=== PATIENT | female | born 1990 | race Caucasian/White ===

== ENCOUNTER 2022-12-28 11:44 | Outpatient (CLI) | payer MEDICAID, SELFPAY | END 2022-12-28 11:45 | disposition home or self-care (01) | PROVIDERS: PCP Physician Assistant Medical; Visit Provider Physician Assistant Medical | DX: Z01.419 Encounter for gynecological examination (general) (routine) without abnormal findings (principal); R00.2 Palpitations; I10 Essential (primary) hypertension; R79.89 Other specified abnormal findings of blood chemistry; R63.1 Polydipsia | CPT/HCPCS: 80053; 80061; 82088; 83690; 83835; 84244; 84443; 86701; 86702; 86803; 87536 ==

== ENCOUNTER 2023-01-01 13:20 | Outpatient (CLI) | payer MEDICAID, SELFPAY | END 2023-01-01 13:21 | disposition home or self-care (01) | LOC: NFLDREF 01-07 02:55 | PROVIDERS: PCP Physician Assistant Medical; Referring Provider Physician Assistant Medical; Visit Provider Physician Assistant Medical | DX: R00.2 Palpitations (principal) | CPT/HCPCS: 83835 ==

== ENCOUNTER 2023-01-14 14:31 | Outpatient (CLI) | payer BC, SELFPAY ==
--- NOTE | 2023-01-14 15:00 | CRLHL7_ITS ---
For Patients: As a result of the Century Cures Act, medical imaging exams and procedure reports are released immediately into your electronic medical record. You may view this report before your referring provider. If you have questions, please contact your health care provider. Indication: Right upper quadrant pain Technique: Postcontrast CT abdomen and pelvis. 100 cc Isovue 370 intravenous contrast. Please note that all CT scans at this facility use dose modulation, iterative reconstruction, and/or weight-based dosing when appropriate to reduce radiation dose to as low as reasonably achievable. Comparison: None Findings: Curvilinear subsegmental scarring in the anterior right middle lobe. No pleural effusion. Mild hepatic steatosis. No intrahepatic mass. No stigmata of cirrhosis. Gallbladder normal. No calcified stones or biliary obstruction. The pancreas is unremarkable. Normal spleen. No hiatal hernia. Adrenal glands are normal. Normal kidneys and ureters. Incidental splenule is present. Scattered subcentimeter retroperitoneal lymph nodes are present. No abdominal wall hernia. The stomach and small bowel appear unremarkable. Normal bladder. Small ovarian cysts. Normal uterus. No enlarged pelvic or inguinal lymph nodes. Sigmoid diverticulosis is present. Mild diverticulosis also present involving the proximal left colon. No evidence of diverticulitis. No inflammatory bowel disease. No fracture. Impression: Diverticulosis. No diverticulitis. Numerous subcentimeter retroperitoneal lymph nodes are likely reactive. Mild hepatic steatosis. Gallbladder appears normal. No biliary obstruction. Please note that all CT scans at this facility use dose modulation, iterative reconstruction, and/or weight-based dosing when appropriate to reduce radiation dose to as low as reasonably achievable. Dictated by Simba Mcdonough MD @ 01/18/2023 9:03:01 AM (Electronically Signed)
== END 2023-01-14 14:32 | disposition home or self-care (01) ==
PROVIDERS: PCP Physician Assistant Medical; Visit Provider Physician Assistant Medical
DX: R10.11 Right upper quadrant pain (principal); K57.30 Diverticulosis of large intestine without perforation or abscess without bleeding; K76.0 Fatty (change of) liver, not elsewhere classified
CPT/HCPCS: 74177; Q9967

== ENCOUNTER 2023-01-29 15:14 | Outpatient (CLI) | payer BC, SELFPAY ==
--- NOTE | 2023-01-29 15:30 | CRLHL7_ITS ---
For Patients: As a result of the Century Cures Act, medical imaging exams and procedure reports are released immediately into your electronic medical record. You may view this report before your referring provider. If you have questions, please contact your health care provider. INDICATION: Headaches. TECHNIQUE: Brain MRI without contrast. The following sequences were obtained: Sagittal T1 weighted sequence. DWI and ADC mapping sequences. Axial FLAIR and GLORIA T2 weighted sequences. Susceptibility or GRE sequence. COMPARISON: None. FINDINGS: No evidence of acute ischemia. No evidence of acute or chronic intracranial blood products. No pathologic intracranial signal abnormality. No mass effect or herniation. No hydrocephalus or extra-axial collections. The pituitary gland, parasellar structures and optic chiasm are normal. Tiny chronic infarct left cerebellum, series 3, image 8. all the major intracranial vascular structures demonstrate normal flow-related signal. The orbital contents are normal. No calvarial or skull base marrow replacing process. Bilateral polypoid maxillary sinus mucosal thickening no extracranial soft tissue findings. IMPRESSION: 1. No acute ischemia or other acute intracranial pathology. 2. Tiny chronic infarct left cerebellar hemisphere. 3. No other significant intracranial abnormalities. Dictated by Edin De Santiago MD @ 01/29/2023 4:23:19 PM (Electronically Signed)
== END 2023-01-29 15:15 | disposition home or self-care (01) ==
LOC: MRI 15:16
PROVIDERS: PCP Physician Assistant Medical; Visit Provider Physician Assistant Medical
DX: R51.9 Headache, unspecified (principal); I63.9 Cerebral infarction, unspecified
CPT/HCPCS: 70551

== ENCOUNTER 2023-07-16 17:46 | Emergency (ER) | payer BC, SELFPAY ==
[2023-07-16 18:31] VITALS: BP 125/88; PULSE 113; RESP 16; TEMP 36.3; O2SAT 93; BMI 28.9
--- NOTE | 2023-07-16 19:38 | ED.ABDPAIN ---
HPI - Abdominal Pain General Chief Complaint: Abdominal Pain Stated Complaint: Dizzy, nauseous, elevated heartrate Time Seen by Provider: 07/16/23 19:05 History of Present Illness HPI narrative: This 33-year-old female comes in with upper epigastric pain that she has had for the past urine half. She has had CT imaging an ultrasound test done along with labs over the course of this time. She was seen in [facility] 2 months ago at which time she had labs in CT imaging done. At that time her liver enzymes were elevated at around 200. Her bilirubin was also slightly elevated. CT imaging then showed no acute findings. She states that she had a virtual visit with a processing manager earlier this week and comes in here for further evaluation. She states that she has 3 drinks of alcohol every day. She does not report any fevers. She has had some nausea and vomiting. Related Data Home Medications Medication Instructions Recorded Confirmed promethazine 25 mg tablet 25 mg PO Q6H PRN nausea 07/16/23 07/16/23 Previous Rx's Medication Instructions Recorded omeprazole 20 mg capsule,delayed 20 mg PO .prn PRN GERD #90 caps 02/15/23 release ondansetron 4 mg disintegrating 4 mg PO Q8H PRN nausea and 02/15/23 tablet vomiting #14 tabs pantoprazole 40 mg tablet,delayed 40 mg PO DAILY #30 tabs 07/16/23 release (Protonix) Allergies Allergy/AdvReac Type Severity Reaction Status Date / Time No Known Drug Allergies Allergy Verified 01/14/23 15:13 Review of Systems Status of ROS Reports: 10 or more systems reviewed and unremarkable except as noted in History and below Narrative Constitutional: No fevers, no weight gain or loss. Eyes: No discharge. No vision changes. HENT: No congestion, no sore throat, no ear pain. Cardiovascular: No chest pain, no palpitations. Respiratory: No shortness of breath, no wheezes, no cough. Gastrointestinal: Upper epigastric abdominal pain with some nausea and vomiting. Genitourinary: No dysuria, no hematuria. Musculoskeletal: Normal range of motion. Skin: No rashes, no pruritis. Neurological: No dizziness, weakness, sensory change, speech change. Endo/Heme/Allergies: No bruising or bleeding. No polydipsia. Pysch: no suicidality, no anxiety, no insomnia. All other systems reviewed and are negative. [facility] Medical History (Updated 07/16/23 @ 20:27 by Florentino Grady MD) History of ectopic ?Z87.59 - Personal history of other complications of , childbirth and the puerperium (ICD-10) Social History Smoking Status: Current every day smoker How often do you have a drink containing alcohol: never AUDIT-C Alcohol total score: 0 Exam Narrative: Exam Narrative: Constitutional: Well-developed, well-nourished, no acute distress. HEENT: Normocephalic, atraumatic. Neck: Normal range of motion. Nontender. Supple. Heart: Regular. No murmurs. Normal rate. Intact distal pulses. Lungs: Clear to auscultation. No chest discomfort. No wheezes, rhonchi, or rales. Abdomen: Normal bowel sounds. Diffuse tenderness in the upper abdomen. No rebound tenderness. Genitalia: Deferred. Back: No midline tenderness. Normal range of motion. Extremities: Normal range of motion. No injury. Skin: Intact. No rash. Warm. No erythema or pallor. Neurologic: No altered sensation. No weakness. Alert and oriented. Psychiatric: No suicidality. No anxiety or depression. No insomnia. Nursing notes and vitals signs are reviewed. Const: Vital Signs, click to edit/add: Vital Signs - 24 hr 07/16/23 18:31 Temperature 97.4 F L Pulse Rate [Pulse Oximeter] 113 H Respiratory Rate 16 Blood Pressure [Ri ght Upper Arm] 125/88 Pulse Oximetry 93 Oxygen Delivery Me thod Room Air Course Vital Signs Vital signs: Initial Vital Signs Temperature 97.4 F L 07/16/23 18:31 Temperature Source Temporal Artery Scan 07/16/23 18:31 Pulse Rate 113 H 07/16/23 18:31 Respiratory Rate 16 07/16/23 18:31 Blood Pressure 125/88 07/16/23 18:31 Blood Pressure Mean 100 07/16/23 18:31 Blood Pressure Position Sitting 07/16/23 18:31 Pulse Oximetry 93 07/16/23 18:31 Oxygen Delivery Method Room Air 07/16/23 18:31 Vital Signs Temperature 97.4 F L 07/16/23 18:31 Pulse Rate 113 H 07/16/23 18:31 Respiratory Rate 16 07/16/23 18:31 Blood Pressure 125/88 07/16/23 18:31 Pulse Oximetry 93 07/16/23 18:31 Oxygen Delivery Method Room Air 07/16/23 18:31 Temperature 97.4 F L 07/16/23 18:31 Pulse Rate 113 H 07/16/23 18:31 Respiratory Rate 16 07/16/23 18:31 Blood Pressure 125/88 07/16/23 18:31 Pulse Oximetry 93 07/16/23 18:31 Oxygen Delivery Method Room Air 07/16/23 18:31 MDM - Abdominal Pain MDM Narrative Medical decision making narrative: This patient comes in with upper epigastric pain that has been persistent over the past year and a half and worse recently. She had a rather thorough workup a couple months ago down in [place]. I did review those results which included some elevation of her liver enzymes. Today her liver enzymes are similarly elevated with AST greater than ALT. Additionally her lipase is returns at 575 today. Her symptoms are most likely related to chronic pancreatitis due to alcohol. She is taking 3 drinks a day. I did use bedside ultrasound and saw a normal appearing gallbladder. I explained to the patient that her symptoms are most likely related to the toxin of alcohol. She states that it would be no problem for to discontinue using alcohol altogether. The patient did receive an intramuscular injection of Toradol and an oral dose of Zofran. I did prescribe Protonix along with some tablets of Rogers and dissolvable Zofran to treat her symptoms. I explained that her body will need some time to heal when she stops taking alcohol. I advised her to follow-up with her primary physician and indicated that an endoscopy study would be a reasonable follow-up procedure if not improving. Lab Data Labs: Lab Results 07/16/23 Range/Units 19:42 WBC 5.14 (4.50-11.00) K/uL RBC 4.52 (4.00-5.20) m/uL Hgb 16.6 H (12.0-16.0) gm/dL Hct 48.1 (33.0-51.0) % MCV 106 H (80-100) fL MCH 37 H (26-34) pg MCHC 35 (32-36) gm/dL RDW Coeff of Ronald 15.0 (11.5-15.5) % Plt Count 157 (140-440) K/uL Neut % (Auto) 65.6 (42.0-72.0) % Lymph % (Auto) 24.5 (20-44) % [place] % (Auto) 5.8 (0.0-11.0) % Eos % (Auto) 3.7 (0.0-7.0) % Baso % (Auto) 0.2 (0.0-3.0) % Neut # (Auto) 3.37 (1.7-7.0) K/uL Lymph # (Auto) 1.26 (0.90-2.90) K/uL [place] # (Auto) 0.30 (0.00-0.90) K/UL Eos # (Auto) 0.19 (0.00-0.50) K/uL Baso # (Auto) 0.01 (0.00-0.30) K/uL Abs Immat Gran (auto) 0.01 (0.00-0.30) K/uL Imm/Tot Granulo (auto) 0.2 % Sodium 142 (135-149) mmol/L Potassium 4.0 (3.6-5.1) mmol/L Chloride 103 (96-114) mmol/L Carbon Dioxide 25 (20-32) mmol/L Anion Gap 14 (7-15) mEq/L BUN 4 L (5-24) mg/dL Creatinine 0.4 L (0.5-1.5) mg/dL Estimated Creat Clear 203.68 Estimated GFR 135 ml/min Glucose 106 (60-115) mg/dL Calcium 8.7 (8.4-10.6) mg/dL Total Bilirubin 1.4 (0.1-1.5) mg/dL Direct Bilirubin 0.5 (0.0-0.5) mg/dL AST 228 H (12-35) U/L ALT 194 H (4-35) U/L Alkaline Phosphatase 113 (40-150) U/L Total Protein 8.1 (6.0-8.3) g/dL Albumin 4.4 (3.3-5.0) g/dL Lipase 575 H (23-300) U/L Discharge Plan Discharge Clinical Impression: Chronic pancreatitis Patient Disposition: Home, Self-Care Condition: Stable Additional Instructions: Discontinue alcohol intake. Take medication as needed and directed. Follow up with primary physician or return if symptoms are persistent or worsening. Prescriptions: New pantoprazole [Protonix] 40 mg tablet,delayed release (DR/EC) 40 mg PO DAILY Qty: 30 2RF No Action promethazine 25 mg tablet 25 mg PO Q6H PRN (Reason: nausea) omeprazole 20 mg capsule,delayed release(DR/EC) 20 mg PO .prn PRN (Reason: GERD) Qty: 90 0RF Rx Instructions: once daily ondansetron 4 mg tablet,disintegrating 4 mg PO Q8H PRN (Reason: nausea and vomiting) Qty: 14 0RF Rx Instructions: once every 8 hours as needed for nausea Follow Up/Referrals: Liz Ortez PA-C [Physician Lending Manager] - Stand Alone Forms: [facility] Info Instructions Procedures Ultrasound Biliary exam #1: Anatomical areas examined: gallbladder, long and short axis Indications: RUQ/epigastric pain Exam type: limited abdominal ultrasound; RUQ Description/Findings: Normal appearing gallbladder without any wall thickening or sign of obstruction.
[2023-07-16 19:48] LABS: Basophils Absolute Auto 0.01 K/uL (0.00-0.30); Basophils Percent Auto 0.2 % (0.0-3.0); Eosinophils Absolute Auto 0.19 K/uL (0.00-0.50); Eosinophils Percent Auto 3.7 % (0.0-7.0); Hematocrit 48.1 % (33.0-51.0); Hemoglobin* 16.6 gm/dL (12.0-16.0); Immature Granulocytes Abs Auto 0.01 K/uL (0.00-0.30); Immature Granulocytes Pct Auto 0.2 %; Lymphocytes Absolute Auto 1.26 K/uL (0.90-2.90); Lymphocytes Percent Auto 24.5 % (20-44); Mean Corpuscular HGB Conc 35 gm/dL (32-36); Mean Corpuscular Hemoglobin 37 pg (26-34); Mean Corpuscular Volume 106 fL (80-100); Monocytes Percent Auto 5.8 % (0.0-11.0); Neutrophils Absolute Auto 3.37 K/uL (1.7-7.0); Neutrophils Percent Auto 65.6 % (42.0-72.0); Platelet Count* 157 K/uL (140-440); Red Blood Count 4.52 m/uL (4.00-5.20); White Blood Count* 5.14 K/uL (4.50-11.00)
[2023-07-16] MEDS: ONDANSETRON ODT 4 MG TAB PO (19:57)
[2023-07-16] MEDS: KETOROLAC 30 MG/ML inj IM (19:57)
[2023-07-16 19:59] LABS: Slide Review Reflex No
[2023-07-16 20:01] LABS: Albumin* 4.4 g/dL (3.3-5.0); Chloride* 103 mmol/L (96-114)
[2023-07-16 20:02] LABS: Sodium* 142 mmol/L (135-149)
[2023-07-16 20:04] LABS: Anion Gap 14 mEq/L (7-15); Aspartate Amino Transferase* 228 U/L (12-35); Bilirubin Direct* 0.5 mg/dL (0.0-0.5); Bilirubin Total* 1.4 mg/dL (0.1-1.5); Carbon Dioxide* 25 mmol/L (20-32); Creatinine* 0.4 mg/dL (0.5-1.5); Est. Creatinine Clearance* 203.68; Estimated Glomerular Filt Rate 135 ml/min; Total Protein* 8.1 g/dL (6.0-8.3)
[2023-07-16 20:05] LABS: Alanine Aminotransferase* 194 U/L (4-35); Alkaline Phosphatase* 113 U/L (40-150); Blood Urea Nitrogen* 4 mg/dL (5-24); Calcium* 8.7 mg/dL (8.4-10.6); Glucose* 106 mg/dL (60-115); Lipase* 575 U/L (23-300)
[2023-07-16 20:37] VITALS: BP 128/97; PULSE 100; RESP 16; TEMP 36.4; O2SAT 97
== END 2023-07-16 20:38 | disposition home or self-care (01) ==
PROVIDERS: Emergency Provider Emergency Medicine Emergency Medical Services
DX: K86.1 Other chronic pancreatitis (principal)
CPT/HCPCS: 36415; 76705; 80048; 80076; 83690; 85025; 96372; 99284; 99285; A9270; J1885

== ENCOUNTER 2023-08-09 15:21 | Outpatient (CLI) | payer BC, SELFPAY | END 2023-08-09 15:22 | disposition home or self-care (01) | PROVIDERS: PCP Physician Assistant Medical; Visit Provider Physician Assistant Medical | DX: R79.89 Other specified abnormal findings of blood chemistry (principal); N92.6 Irregular menstruation, unspecified; I10 Essential (primary) hypertension; L90.6 Striae atrophicae; R00.2 Palpitations | CPT/HCPCS: 80053; 82627; 82670; 82728; 83498; 83690; 84146; 84270; 84403; 84443 ==

== ENCOUNTER 2023-10-06 21:44 | Inpatient (IN) | payer BC, SELFPAY ==
[2023-10-06 22:16] VITALS: BP 136/87; PULSE 109; RESP 18; TEMP 36.3; O2SAT 98; BMI 26.6
--- NOTE | 2023-10-06 22:29 | ED.NAVMDI ---
HPI - Nausea/Vomiting/Diarrhea General Time Seen by Provider: 22:29 Date Seen: 10/06/23 Chief complaint: Nausea/Vomiting Stated complaint: vomiting Time Seen by Provider: 10/06/23 22:28 Source: patient, RN notes reviewed and old records reviewed Mode of arrival: ambulatory Limitations: no limitations History of Present Illness HPI Narrative: Patient is a 33-year-old female coming in with abdominal pain for 4 days now. She states she has not been able to eat or drink anything since the . This is worse than when she had pancreatitis in July. 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 She has had no fevers. She has had recurrent nausea vomiting. It was more upper abdominal pain but now it is generalized thing out. Denies any urinary symptoms. Has not had a menstrual cycle for months, has irregular menses, did have a negative test in July here. She understands this will be repeated tonight. She is asking for something for nausea and something for pain. Related Data Home Medications Medication Instructions Recorded Confirmed pantoprazole 40 mg tablet,delayed 40 mg PO Q48H 10/07/23 10/14/23 release (Protonix) Previous Rx's Medication Instructions Recorded hydroxyzine pamoate 25 mg capsule 25 - 50 mg (1 - 2 x 25 mg) PO QHS 08/09/23 #60 caps ondansetron 4 mg disintegrating 4 mg PO Q8H PRN nausea and 10/09/23 tablet vomiting #14 tabs oxycodone 5 mg tablet 5 mg PO Q6H PRN #10 tabs 10/09/23 ciprofloxacin HCl 250 mg tablet 250 mg PO BID 5 days #10 tabs 10/18/23 potassium chloride 20 mEq 20 meq PO BID 5 days #10 tabs 10/18/23 tablet,extended release(part/cryst) Allergies Allergy/AdvReac Type Severity Reaction Status Date / Time honey Allergy Severe Hives Unverified 10/14/23 11:05 bees Allergy Intermediate Anaphylaxis Uncoded 10/14/23 11:05 Review of Systems Status of ROS: Reports: 6 or more systems reviewed and unremarkable except as noted in History and below [facility] Medical History (Updated 10/18/23 @ 08:04 by Liz Ortez PA-C) GERD (gastroesophageal reflux disease) ?K21.9 - Gastro-esophageal reflux disease without esophagitis (ICD-10) Amenorrhea ?N91.2 - Amenorrhea, unspecified (ICD-10) Hepatic steatosis ?K76.0 - Fatty (change of) liver, not elsewhere classified (ICD-10) Alcohol use disorder ?F10.90 - Alcohol use, unspecified, uncomplicated (ICD-10) History of ectopic ?Z87.59 - Personal history of other complications of , childbirth and the puerperium (ICD-10) Social History What is your current living situation?: I presently have a place to live Problems where you live: no known problems Problems where you live details: n/a In the past 12 months, utilities in danger of being shut off: no In past 12 months, lack of transportation kept you from medical appts, meetings, work, or getting things needed for daily living: no In the past 12 mos, have been you worried that your food would run out before you had money to buy more?: never true In the past 12 mos, the food you bought just didn't last and you didn't have money to buy more?: never true Highest level of school completed/degree received: GED or equivalent Smoking Status: Current every day smoker What tobacco products do you use: cigarettes Smoking packs per day: 1 Smoking cigarettes per day: 20.0 How often do you have a drink containing alcohol: never AUDIT-C Alcohol total score: 0 Non-prescribed substance use: denies use How often does anyone, including family, friends and others, physically hurt you: never How often does anyone, including family, friends and others, insult or talk down to you: never How often does anyone, including family, friends and others, threaten you with harm: never How often does anyone, including family, friends and others, scream or curse at you: never service: No Exam Const: Vital Signs, click to edit/add: Vital Signs - 24 hr 10/06/23 22:16 10/06/23 23:00 10/06/23 23:01 Temperature 97.4 F L Pulse Rate 104 H 101 H Pulse Rate [Pulse Oximeter] 109 H Respiratory Rate 18 Blood Pressure 135/96 H Blood Pressure [Ri ght Upper Arm] 136/87 Pulse Oximetry 98 93 94 Oxygen Delivery Me thod Room Air Patient is a 33-year-old female seen ambulating back from the bathroom, looks like she does not feel well. Pupils equal round and reactive, sclera slightly injected but no periorbital erythema swelling, no drainage. Cheeks are flushed but no rash. Neck is supple, no masses. Lungs are clear, good air entry, no wheezing or crackles. CV fast but regular, no murmur, normal S1-S2, no S3 or S4. Abdomen is not distended, has mild diffuse tenderness throughout, no true rebound or guarding. Do not feel any masses. Bowel sounds are faint but present. No lower extremity edema. Documenting provider has reviewed patient's vital signs: yes Course Course ED Course: Patient will be monitored on pulse oximetry, IV placed, L of IV fluids started an initial attempt at pain management with 15 mg IV Toradol and management of nausea with 4 mg IV Zofran. We will get appropriate labs, confirm negative test. She will have a CT of abdomen pelvis. She obviously has intra-abdominal pathology, pancreatitis certainly is at high a level on the differential. Will await labs, CT imaging and guide therapy accordingly. This could be gastroenteritis, bowel obstruction, other surgical and nonsurgical abdominal etiologies. Reevaluation(s) Time of Reevaluation #1: 00:07 Reevaluation #1: Patient requesting further pain medicine, will order 4 mg IV [address]. Her CT has not been read. Amylase is elevated, lipase was not back last time it looked. This is very likely pancreatitis. Time of Reevaluation #2: 00:43 Reevaluation #2: Reviewed with patient that her pancreatic enzymes are elevated, CT still pending. She is feeling better with morphine. Discussed admission, she agrees. Have paged e-hospitalist. Will likely need ultrasound Consultations Consultation #1: Dr. Lopez was contacted, report given for patient. He accepts patient but would like her to stay here and page him back once CT is read, I have informed nursing staff of this. US RUQ to be ordered in am, is not going to change any plans tonight. There is no bed availability elsewhere at this time. Time: 00:53 Vital Signs Vital signs: Initial Vital Signs Temperature 97.4 F L 10/06/23 22:16 Temperature Source Temporal Artery Scan 10/06/23 22:16 Pulse Rate 109 H 10/06/23 22:16 Respiratory Rate 18 10/06/23 22:16 Blood Pressure 136/87 10/06/23 22:16 Blood Pressure Mean 103 10/06/23 22:16 Blood Pressure Position Sitting 10/06/23 22:16 Pulse Oximetry 98 10/06/23 22:16 Oxygen Delivery Method Room Air 10/06/23 22:16 Vital Signs Temperature 97.4 F L 10/06/23 22:16 Pulse Rate 109 H 10/06/23 22:16 Respiratory Rate 18 10/06/23 22:16 Blood Pressure 136/87 10/06/23 22:16 Pulse Oximetry 98 10/06/23 22:16 Oxygen Delivery Method Room Air 10/06/23 22:16 Temperature 97.3 F L 10/09/23 11:00 Pulse Rate 80 10/09/23 11:00 Respiratory Rate 16 10/09/23 11:00 Blood Pressure 145/105 H 10/09/23 11:00 Pulse Oximetry 98 10/09/23 11:00 Oxygen Delivery Method Room Air 10/09/23 11:00 Medications Administered Medications: Discontinued Medications Generic Name Dose Route Start Last Admin Trade Name Freq PRN Reason Stop Dose Admin Acetaminophen 650 mg 10/07/23 03:36 10/09/23 02:36 Acetaminophen 325 Mg Tablet PO 650 mg Q6H PRN Administration pain Folic Acid 1 mg 10/07/23 09:00 10/09/23 09:12 Folic Acid 1 Mg Tablet PO 1 mg DAILY ROSALIE Administration Sodium Chloride 1,000 mls @ 1,000 mls/hr 10/06/23 22:41 10/06/23 23:51 0.9 % Sodium Chloride 1000 Ml IV 10/06/23 23:40 Infused .Q1H ROSALIE Infusion Lactated Ringer's 1,000 mls @ 500 mls/hr 10/06/23 23:27 10/07/23 01:17 Lactated Ringers 1000 Ml IV 10/07/23 01:26 Infused .Q2H ROSALIE Infusion Sodium Chloride 1,000 mls @ 125 mls/hr 10/07/23 03:42 10/09/23 02:35 0.9 % Sodium Chloride 1000 Ml IV 125 mls/hr .Q8H ROSALIE Administration Ketorolac Tromethamine 15 mg 10/06/23 22:38 10/06/23 22:47 Ketorolac 15 Mg/Ml Inj IVP 10/06/23 22:39 15 mg ONCE ONE Administration Melatonin 3 mg 10/07/23 03:36 10/08/23 21:31 Melatonin 3 Mg Tablet PO 3 mg HS PRN Administration Morphine Sulfate 4 mg 10/07/23 00:08 10/07/23 00:15 Morphine 4 Mg/Ml Inj IVP 10/07/23 00:09 4 mg ONCE ONE Administration Morphine Sulfate 2 mg 10/07/23 01:21 10/07/23 01:29 Morphine 2 Mg/Ml Inj IVP 2 mg Q2H PRN Administration Morphine Sulfate 2 - 4 mg 10/07/23 03:36 10/07/23 11:59 Morphine 4 Mg/Ml Inj IVP 4 mg Q1H PRN Administration Pain Multivitamins/Minerals 1 tab 10/07/23 09:00 10/09/23 09:13 Multivitamin/Minerals 1 Tablet PO 1 tab DAILY ROSALIE Administration Nicotine 1 patch 10/07/23 04:15 10/09/23 06:25 Nicotine 14 Mg Patch TRANSDERMA 1 patch Q24H ROSALIE Administration Ondansetron HCl 4 mg 10/06/23 22:38 10/06/23 22:47 Ondansetron 2 Mg/Ml Inj IVP 10/06/23 22:39 4 mg ONCE ONE Administration Ondansetron HCl 4 mg 10/07/23 01:21 10/07/23 01:29 Ondansetron 2 Mg/Ml Inj IVP 4 mg Q6H PRN Administration Nausea Ondansetron HCl 4 mg 10/07/23 03:36 10/09/23 10:15 Ondansetron 2 Mg/Ml Inj IVP 4 mg Q4H PRN Administration Nausea Oxycodone HCl 5 mg 10/07/23 10:20 10/09/23 11:24 Oxycodone 5 Mg Tablet PO 5 mg Q2H PRN Administration Pantoprazole Sodium 40 mg 10/07/23 04:20 10/09/23 06:25 Pantoprazole Sodium 40 Mg Inj IVP 40 mg Q24H ROSALIE Administration Sodium Chloride 5 ml 10/07/23 03:36 10/09/23 06:28 Sodium Chloride 0.9 % (Flush) 10 Ml Syringe IVF 5 ml .FLUSH PRN Administration Sodium Chloride 5 ml 10/07/23 09:00 10/09/23 09:13 Sodium Chloride 0.9 % (Flush) 10 Ml Syringe IVF Not Given BID ROSALIE Thiamine HCl 100 mg 10/07/23 04:00 10/09/23 09:14 Thiamine 100 Mg Tablet PO 10/09/23 04:01 Not Given Q24H ROSALIE Thiamine HCl 100 mg 10/09/23 09:00 10/09/23 09:12 Thiamine 100 Mg Tablet PO 10/09/23 09:01 100 mg DAILY ROSALIE Administration MDM - Nausea/Vomiting/Diarrhea Lab Data Attestation: I reviewed the patient's lab results. Labs: Lab Results 10/06/23 10/06/23 10/06/23 Range/Units 22:25 22:26 22:26 WBC 6.67 (4.50-11.00) K/uL RBC 4.82 (4.00-5.20) m/uL Hgb 16.7 H (12.0-16.0) gm/dL Hct 48.5 (33.0-51.0) % MCV 101 H (80-100) fL MCH 35 H (26-34) pg MCHC 34 (32-36) gm/dL RDW Coeff of Ronald 14.7 (11.5-15.5) % Plt Count 180 (140-440) K/uL Neut % (Auto) 80.6 H (42.0-72.0) % Lymph % (Auto) 13.0 L (20-44) % Randolph % (Auto) 5.4 (0.0-11.0) % Eos % (Auto) 0.6 (0.0-7.0) % Baso % (Auto) 0.3 (0.0-3.0) % Neut # (Auto) 5.40 (1.7-7.0) K/uL Lymph # (Auto) 0.90 (0.90-2.90) K/uL Randolph # (Auto) 0.40 (0.00-0.90) K/UL Eos # (Auto) 0.04 (0.00-0.50) K/uL Baso # (Auto) 0.02 (0.00-0.30) K/uL Abs Immat Gran (auto) 0.01 (0.00-0.30) K/uL Imm/Tot Granulo (auto) 0.1 % Sodium 139 (135-149) mmol/L Potassium 4.0 (3.6-5.1) mmol/L Chloride 100 (96-114) mmol/L Carbon Dioxide 21 (20-32) mmol/L Anion Gap 18 H (7-15) mEq/L BUN 9 (5-24) mg/dL Creatinine 0.4 L (0.5-1.5) mg/dL Estimated Creat Clear 211.01 Estimated GFR 135 ml/min Glucose 92 (60-115) mg/dL Lactate 3.2 H (0.5-1.9) mmol/L Calcium 9.4 (8.4-10.6) mg/dL Total Bilirubin 2.0 H (0.1-1.5) mg/dL Direct Bilirubin 0.8 H (0.0-0.5) mg/dL AST 82 H (12-35) U/L ALT 111 H (4-35) U/L Alkaline Phosphatase 107 (40-150) U/L Total Protein 9.2 H (6.0-8.3) g/dL Albumin 5.3 H (3.3-5.0) g/dL Amylase 416 H Cancelled (18-89) U/L Lipase 5175 H (23-300) U/L Urine Color (Yellow) Urine Appearance (Clear) Urine pH (5.0-8.5) Ur Specific [place] (1.000-1.030) Urine Protein (Negative) Urine Glucose (UA) (Negative) Urine Ketones (Negative) Urine Blood (Negative) Urine Nitrite (Negative) Urine Bilirubin (Negative) Urine Urobilinogen (0.2-1.0) Ur Leukocyte Esterase (Negative) Urine RBC (0-2) Urine WBC (0-5) Ur Squamous Epith Cells (None-Few) Urine Bacteria (None) Urine Mucus (None) Urine HCG, Qual (Negative) Ethyl Alcohol (0.01-0.03) % Lab Acknowledgement 10/06/23 10/06/23 10/06/23 Range/Units 22:26 22:40 22:42 WBC (4.50-11.00) K/uL RBC (4.00-5.20) m/uL Hgb (12.0-16.0) gm/dL Hct (33.0-51.0) % MCV (80-100) fL MCH (26-34) pg MCHC (32-36) gm/dL RDW Coeff of Ronald (11.5-15.5) % Plt Count (140-440) K/uL Neut % (Auto) (42.0-72.0) % Lymph % (Auto) (20-44) % Randolph % (Auto) (0.0-11.0) % Eos % (Auto) (0.0-7.0) % Baso % (Auto) (0.0-3.0) % Neut # (Auto) (1.7-7.0) K/uL Lymph # (Auto) (0.90-2.90) K/uL Randolph # (Auto) (0.00-0.90) K/UL Eos # (Auto) (0.00-0.50) K/uL Baso # (Auto) (0.00-0.30) K/uL Abs Immat Gran (auto) (0.00-0.30) K/uL Imm/Tot Granulo (auto) % Sodium (135-149) mmol/L Potassium (3.6-5.1) mmol/L Chloride (96-114) mmol/L Carbon Dioxide (20-32) mmol/L Anion Gap (7-15) mEq/L BUN (5-24) mg/dL Creatinine (0.5-1.5) mg/dL Estimated Creat Clear Estimated GFR ml/min Glucose (60-115) mg/dL Lactate (0.5-1.9) mmol/L Calcium (8.4-10.6) mg/dL Total Bilirubin (0.1-1.5) mg/dL Direct Bilirubin (0.0-0.5) mg/dL AST (12-35) U/L ALT (4-35) U/L Alkaline Phosphatase (40-150) U/L Total Protein (6.0-8.3) g/dL Albumin (3.3-5.0) g/dL Amylase (18-89) U/L Lipase Cancelled (23-300) U/L Urine Color Cynthia A (Yellow) Urine Appearance Cloudy A (Clear) Urine pH 6.0 (5.0-8.5) Ur Specific [place] >= 1.030 (1.000-1.030) Urine Protein 2+ A (Negative) Urine Glucose (UA) Negative (Negative) Urine Ketones 3+ A (Negative) Urine Blood Trace-lysed A (Negative) Urine Nitrite Negative (Negative) Urine Bilirubin 1+ A (Negative) Urine Urobilinogen 1.0 (0.2-1.0) Ur Leukocyte Esterase Negative (Negative) Urine RBC 2-5 A (0-2) Urine WBC 2-5 (0-5) Ur Squamous Epith Cells Moderate A (None-Few) Urine Bacteria Few A (None) Urine Mucus Few A (None) Urine HCG, Qual Negative (Negative) Ethyl Alcohol 0.07 H (0.01-0.03) % Lab Acknowledgement Cancelled Discharge Plan Discharge Clinical Impression: Acute pancreatitis Patient Disposition: Admitted As Observation Condition: Improved Activity Level: Activity as Tolerated Discharge Diet: Regular
[2023-10-06 22:42] LABS: Lactate* 3.2 mmol/L (0.5-1.9)
--- NOTE | 2023-10-06 22:42 | CRLHL7_ITS ---
For Patients: As a result of the Century Cures Act, medical imaging exams and procedure reports are released immediately into your electronic medical record. You may view this report before your referring provider. If you have questions, please contact your health care provider. INDICATION: abd pain, n/v, hx pancreatitis. TECHNIQUE: CT abdomen and pelvis acquired with 100 cc Omnipaque 350 IV contrast. COMPARISON: January 14, 2023 FINDINGS: Lower chest: Unremarkable. Liver: Diffuse severe hypodensity of the liver. Normal in size. No suspicious masses. Gallbladder and bile ducts: Unremarkable. No stones or inflammation. No biliary dilatation. Pancreas: Peripancreatic small free fluid and fat stranding, consistent with pancreatitis. Spleen: Unremarkable. Normal in size. No masses. Adrenal glands: Unremarkable. No nodules. Kidneys: Unremarkable. No suspicious masses, stones, or hydronephrosis. GI tract: Scattered colonic diverticuli. Normal in caliber. No sign of mass or inflammation. Normal appendix. Vasculature: Abdominal aorta is normal in caliber. Mesenteric arteries are patent. Lymph nodes: No lymphadenopathy. Peritoneum/Abdominal Wall: Unremarkable. No sign of mass or infiltration. No free air or significant free fluid. Pelvis: Unremarkable. Bones: Unremarkable for age. IMPRESSION: 1. Peripancreatic small free fluid and fat stranding, consistent with provided history of pancreatitis. 2. Severe hypodensity of the liver may be related to hepatic steatosis or rarely seen with edema from hepatitis. Please note that all CT scans at this facility use dose modulation, iterative reconstruction, and/or weight-based dosing when appropriate to reduce radiation dose to as low as reasonably achievable. Dictated by Marisa Cobian MD @ 10/07/2023 1:30:15 AM (Electronically Signed)
[2023-10-06 22:43] LABS: Basophils Absolute Auto 0.02 K/uL (0.00-0.30); Basophils Percent Auto 0.3 % (0.0-3.0); Eosinophils Absolute Auto 0.04 K/uL (0.00-0.50); Eosinophils Percent Auto 0.6 % (0.0-7.0); Hematocrit 48.5 % (33.0-51.0); Hemoglobin* 16.7 gm/dL (12.0-16.0); Immature Granulocytes Abs Auto 0.01 K/uL (0.00-0.30); Immature Granulocytes Pct Auto 0.1 %; Mean Corpuscular HGB Conc 34 gm/dL (32-36); Mean Corpuscular Hemoglobin 35 pg (26-34); Mean Corpuscular Volume 101 fL (80-100); Monocytes Percent Auto 5.4 % (0.0-11.0); Neutrophils Percent Auto 80.6 % (42.0-72.0); Platelet Count* 180 K/uL (140-440); RDW Coefficient of Variation % 14.7 % (11.5-15.5); Red Blood Count 4.82 m/uL (4.00-5.20); White Blood Count* 6.67 K/uL (4.50-11.00)
[2023-10-06 22:44] LABS: Slide Review Reflex No
[2023-10-06] MEDS: ONDANSETRON 2 MG/ML inj 4 MG IVP (22:47)
[2023-10-06] MEDS: 0.9 % SODIUM CHLORIDE 1000 ml 1,000 ML IV (22:47)
[2023-10-06] MEDS: KETOROLAC 15 MG/ML inj IVP (22:47)
[2023-10-06 22:52] LABS: Appearance Urine Cloudy (Clear); Bilirubin Urine 1+ (Negative); Blood Urine Trace-lysed (Negative); Color Urine Amber (Yellow); Glucose Urine Negative (Negative); Ketones Urine 3+ (Negative); Leukocyte Esterase Urine Negative (Negative); Nitrite Urine Negative (Negative); Protein Urine 2+ (Negative); Specific Gravity Urine >= 1.030 (1.000-1.030)
[2023-10-06 22:53] LABS: Ur HCG Qualitative* Negative (Negative)
[2023-10-06 22:57] LABS: Bacteria Urine Few; Mucus Urine Few; Squamous Epithelial Cell Urine Moderate (None-Few)
[2023-10-06 22:57] LABS: Albumin* 5.3 g/dL (3.3-5.0); Chloride* 100 mmol/L (96-114)
[2023-10-06 22:58] LABS: Sodium* 139 mmol/L (135-149)
[2023-10-06 23:00] VITALS: PULSE 104; O2SAT 93
[2023-10-06 23:00] LABS: Amylase* 416 U/L (18-89); Anion Gap 18 mEq/L (7-15); Aspartate Amino Transferase* 82 U/L (12-35); Bilirubin Direct* 0.8 mg/dL (0.0-0.5); Blood Urea Nitrogen* 9 mg/dL (5-24); Carbon Dioxide* 21 mmol/L (20-32); Creatinine* 0.4 mg/dL (0.5-1.5); Est. Creatinine Clearance* 211.01; Estimated Glomerular Filt Rate 135 ml/min; Glucose* 92 mg/dL (60-115); Total Protein* 9.2 g/dL (6.0-8.3)
[2023-10-06 23:01] VITALS: BP 135/96; PULSE 101; O2SAT 94
[2023-10-06 23:01] LABS: Alanine Aminotransferase* 111 U/L (4-35); Alkaline Phosphatase* 107 U/L (40-150); Calcium* 9.4 mg/dL (8.4-10.6)
[2023-10-06 23:02] VITALS: PULSE 100; O2SAT 93
[2023-10-06 23:02] LABS: Ethanol* 0.07 % (0.01-0.03)
[2023-10-06 23:30] VITALS: PULSE 105; O2SAT 95
[2023-10-06 23:32] LABS: Lipase* 5175 U/L (23-300)
[2023-10-06] MEDS: LACTATED RINGERS 1000 ML 1,000 ML 500 ML IV (23:51)
[2023-10-07] VITALS (17 sets, daily range): BP systolic 107–141; BP diastolic 77–104; PULSE 91–115; RESP 16–20; TEMP 36.3–37.3; O2SAT 94–97; BMI 28.5
[2023-10-07] MEDS: MORPHINE 4 MG/ML INJ IVP ×6 (00:15→11:59)
--- NOTE | 2023-10-07 01:06 | CRLHL7_ITS ---
For Patients: As a result of the Century Cures Act, medical imaging exams and procedure reports are released immediately into your electronic medical record. You may view this report before your referring provider. If you have questions, please contact your health care provider. Indication: Pancreatitis Technique: Sonography of the abdomen was performed limited to the structures discussed below Comparison: A CT from 10/06/2023 Findings: Gallbladder appears normal. Wall thickness is normal at 2 millimeters. No pericholecystic fluid collection. No stones. No wall thickening. No sonographic Nj`s sign. The liver is enlarged and heterogeneous with decreased sound through transmission consistent with hepatic steatosis. No visible mass or biliary ductal dilation. The common duct measures 4 millimeters which is normal. The pancreas is not seen due to overlying bowel gas. The aorta and cava as visualized appears normal The right kidney is normal in size and appearance measuring 1.6 x 5.3 x 5.7 centimeters Impression: 1. Normal appearing gallbladder and biliary ductal system. 2. Enlarged fatty infiltrated liver. 3. Nonvisualized pancreas. Dictated by Cong Finnegan MD @ 10/07/2023 7:24:13 AM (Electronically Signed)
[2023-10-07] MEDS: ONDANSETRON 2 MG/ML inj 4 MG IVP ×4 (01:29→16:16)
[2023-10-07] MEDS: MORPHINE 2 MG/ML inj IVP (01:29)
--- NOTE | 2023-10-07 04:08 | W.PM.TELEH&P ---
Telehealth- H&P: HPI History of Present Illness Time Seen by Provider: 03:54 Date Seen: 10/07/23 Chief complaint: vomiting Narrative: Jackie Do is seen as an Interactive Telehealth visit. Jackie Do is a 33 year old male who has a past medical history significant for GERD, HTN, ?alcohol abuse, prior episode of pancreatitis, who presented to the ED [facility] emergency department on 10/06/2023 for evaluation of nausea/vomiting, abdominal pain.? She reported that she had been having worsening abdominal pain for about 4 days (but really for a year).? She stated that she had not been able to keep any liquids or solids down since 10/02/2023.? She initially stated that she had quit using alcohol but later admitted that she had some alcohol on 10/04/2023. She stated that in the past she would have 4-5 drinks a day but this has decreased since her first episode of pancreatitis to about 2 drinks per day. She also smokes 1 pack/day of cigarettes. Review of Systems Const: Reports: chills and fatigue; Denies: fever Cardio: Denies: chest pain, edema, shortness of breath with exertion or shortness of breath when lying down Resp: Denies: shortness of breath GI: Reports: abdominal pain, nausea and vomiting; Denies: coffee grounds in vomit or diarrhea : Denies: blood in urine Neuro: Denies: confusion or seizure-like activity Endo: Reports: fatigue PFSH PFSH Medical History History of ectopic ?Z87.59 - Personal history of other complications of , childbirth and the puerperium (ICD-10) Social History What is your current living situation?: I presently have a place to live Problems where you live: no known problems Problems where you live details: n/a In the past 12 months, utilities in danger of being shut off: no In past 12 months, lack of transportation kept you from medical appts, meetings, work, or getting things needed for daily living: no In the past 12 mos, have been you worried that your food would run out before you had money to buy more?: never true In the past 12 mos, the food you bought just didn't last and you didn't have money to buy more?: never true Highest level of school completed/degree received: GED or equivalent Smoking Status: Current every day smoker What tobacco products do you use: cigarettes Smoking packs per day: 1 Smoking cigarettes per day: 20.0 How often do you have a drink containing alcohol: never AUDIT-C Alcohol total score: 0 Non-prescribed substance use: denies use How often does anyone, including family, friends and others, physically hurt you: never How often does anyone, including family, friends and others, insult or talk down to you: never How often does anyone, including family, friends and others, threaten you with harm: never How often does anyone, including family, friends and others, scream or curse at you: never service: No Meds Home Medications and Allergies Allergies Allergy/AdvReac Type Severity Reaction Status Date / Time honey Allergy Severe Hives Unverified 10/07/23 02:45 bees Allergy Intermediate Anaphylaxis Uncoded 10/07/23 02:45 Exam Narrative Exam Narrative: Physical Exam GENERAL: ?vital signs reviewed, well developed and nourished, in no distress HEENT: pupils are equal round and reactive to light, extraocular movements are grossly within normal limits and oral mucosa is moist. NECK: Supple without lymphadenopathy or thyromegaly according to nursing staff examination observation HEART: Borderline tachycardic Regular rate and rhythm without any rubs, murmurs, or gallops. LUNGS: Clear to auscultation bilaterally with good air movement throughout ABDOMEN: Observation from nurse assisted exam, abdomen appears soft, with mild diffuse tenderness, obese with Positive bowel sounds noted. EXTREMITIES: Strength and sensation is observed to be grossly within normal limits in the upper and lower extremities.? No focal strength deficit is observed. SKIN:? Observed warm and dry with color normal Const Vital Signs, click to edit/add: Vital Signs - 24 hr 10/06/23 22:16 10/06/23 23:00 10/06/23 23:01 Temperature 97.4 F L Pulse Rate 104 H 101 H Pulse Rate [Pulse Oximeter] 109 H Respiratory Rate 18 Blood Pressure 135/96 H Blood Pressure [Right Arm] Blood Pressure [Right Upper Arm] 136/87 Pulse Oximetry 98 93 94 Oxygen Delivery Method Room Air 10/06/23 23:02 10/06/23 23:30 10/07/23 00:00 Temperature Pulse Rate 100 105 H 115 H Pulse Rate [Pulse Oximeter] Respiratory Rate Blood Pressure Blood Pressure [Right Arm] Blood Pressure [Right Upper Arm] Pulse Oximetry 93 95 95 Oxygen Delivery Method Room Air 10/07/23 00:01 10/07/23 00:01 10/07/23 00:01 Temperature Pulse Rate 103 H 103 H 103 H Pulse Rate [Pulse Oximeter] Respiratory Rate Blood Pressure 107/77 107/77 107/77 Blood Pressure [Right Arm] Blood Pressure [Right Upper Arm] Pulse Oximetry 96 96 96 Oxygen Delivery Method 10/07/23 00:01 10/07/23 00:08 10/07/23 00:30 Temperature Pulse Rate 103 H 110 H Pulse Rate [Pulse Oximeter] Respiratory Rate Blood Pressure 107/77 Blood Pressure [Right Arm] Blood Pressure [Right Upper Arm] Pulse Oximetry 96 94 94 Oxygen Delivery Method 10/07/23 01:00 10/07/23 01:01 10/07/23 01:16 Temperature 97.4 F L Pulse Rate 100 103 H Pulse Rate [Pulse Oximeter] Respiratory Rate Blood Pressure 120/88 Blood Pressure [Right Arm] Blood Pressure [Right Upper Arm] Pulse Oximetry 94 94 Oxygen Delivery Method 10/07/23 01:30 10/07/23 02:05 10/07/23 02:06 Temperature 98.0 F 98.0 F 98.0 F Pulse Rate 99 Pulse Rate [Pulse Oximeter] 99 99 Respiratory Rate 20 20 20 Blood Pressure 125/78 Blood Pressure [Right Arm] Blood Pressure [Right Upper Arm] 121/78 121/78 Pulse Oximetry 97 97 Oxygen Delivery Method Room Air 10/07/23 02:20 Temperature 98.6 F Pulse Rate Pulse Rate [Pulse Oximeter] 100 Respiratory Rate 20 Blood Pressure Blood Pressure [Right Arm] 141/97 H Blood Pressure [Right Upper Arm] Pulse Oximetry 97 Oxygen Delivery Method Room Air Documenting provider has reviewed patient's vital signs: yes Hospitalist - H&P: Result Labs Labs: Short CBC 10/06/23 Range/Units 22:25 WBC 6.67 (4.50-11.00) K/uL Hgb 16.7 H (12.0-16.0) gm/dL Hct 48.5 (33.0-51.0) % Plt Count 180 (140-440) K/uL BMP 10/06/23 22:26 Sodium 139 Potassium 4.0 Chloride 100 Carbon Dioxide 21 BUN 9 Creatinine 0.4 L Glucose 92 Calcium 9.4 Liver Function 10/06/23 Range/Units 22:26 Total Bilirubin 2.0 H (0.1-1.5) mg/dL Direct Bilirubin 0.8 H (0.0-0.5) mg/dL AST 82 H (12-35) U/L ALT 111 H (4-35) U/L Alkaline Phosphatase 107 (40-150) U/L Albumin 5.3 H (3.3-5.0) g/dL Urine 10/06/23 Range/Units 22:40 Urine Color Cynthia A (Yellow) Urine Appearance Cloudy A (Clear) Urine pH 6.0 (5.0-8.5) Ur Specific [place] >= 1.030 (1.000-1.030) Urine Protein 2+ A (Negative) Urine Glucose (UA) Negative (Negative) Imaging CT scan - abdomen: Attestation: I have reviewed the pertinent imaging results. Radiologist's impression: COMPARISON: January 14, 2023 FINDINGS: Lower chest: Unremarkable. Liver: Diffuse severe hypodensity of the liver. Normal in size. No suspicious masses. Gallbladder and bile ducts: Unremarkable. No stones or inflammation. No biliary dilatation. Pancreas: Peripancreatic small free fluid and fat stranding, consistent with pancreatitis. Spleen: Unremarkable. Normal in size. No masses. Adrenal glands: Unremarkable. No nodules. Kidneys: Unremarkable. No suspicious masses, stones, or hydronephrosis. GI tract: Scattered colonic diverticuli. Normal in caliber. No sign of mass or inflammation. Normal appendix. Vasculature: Abdominal aorta is normal in caliber. Mesenteric arteries are patent. Lymph nodes: No lymphadenopathy. Peritoneum/Abdominal Wall: Unremarkable. No sign of mass or infiltration. No free air or significant free fluid. Pelvis: Unremarkable. Bones: Unremarkable for age. IMPRESSION: 1. Peripancreatic small free fluid and fat stranding, consistent with provided history of pancreatitis. 2. Severe hypodensity of the liver may be related to hepatic steatosis or rarely seen with edema from hepatitis. Assessment and Plan Assessment and plan (1) Acute pancreatitis: Status: Acute (2) GERD (gastroesophageal reflux disease): Status: Acute Plan Admit Acute pancreatitis -suspect due to alcohol abuse -N.p.o. -IV fluids -As needed antiemetics and narcotics -Right upper quadrant ultrasound in a.m. - check repeat LFT's in AM Possible alcoholic ketoacidosis -IV fluids -Initial lactate was elevated -Doubt current infection -will check repeat Gastroesophageal reflux disease -IV Protonix for now Hypertension -Not currently on medications -Monitor Alcohol abuse -Patient initially said that she was not consuming alcohol at all but later admitted to having 2 drinks on Vadim -Will monitor on withdrawal protocol -Check urine tox screen -social services assistant input regarding substance abuse in a.m. Telehealth: Statement Statement Telehealth Visit: Today's History and Physical is provided via interactive telehealth by Chon Lopez MD.? Patient is located at [facility].? Provider is located at [facility].? Nursing staff assisted with the patient's exam. The visit being done today meets criteria for a telehealth visit and the patient or patient?s parent/guardian is aware the visit is a telehealth visit. Camera Start Time: 03:54 Camera End Time: 04:06
[2023-10-07] MEDS: 0.9 % SODIUM CHLORIDE 1000 ml 1,000 ML 125 ML IV ×3 (04:33→21:05)
[2023-10-07] MEDS: PANTOPRAZOLE SODIUM 40 MG INJ IVP (04:49)
[2023-10-07] MEDS: NICOTINE 14 mg PATCH 1 PATCH TRANSDERMA (04:49)
[2023-10-07] MEDS: THIAMINE 100 MG TABLET PO (04:50)
[2023-10-07 06:39] LABS: Lactate* 0.6 mmol/L (0.5-1.9)
[2023-10-07 06:41] LABS: Basophils Absolute Auto 0.02 K/uL (0.00-0.30); Basophils Percent Auto 0.3 % (0.0-3.0); Eosinophils Absolute Auto 0.12 K/uL (0.00-0.50); Hematocrit 40.9 % (33.0-51.0); Immature Granulocytes Abs Auto 0.01 K/uL (0.00-0.30); Immature Granulocytes Pct Auto 0.2 %; Lymphocytes Percent Auto 15.3 % (20-44); Mean Corpuscular HGB Conc 34 gm/dL (32-36); Mean Corpuscular Hemoglobin 35 pg (26-34); Mean Corpuscular Volume 102 fL (80-100); Monocytes Percent Auto 6.9 % (0.0-11.0); Neutrophils Percent Auto 75.3 % (42.0-72.0); Platelet Count* 136 K/uL (140-440); White Blood Count* 5.94 K/uL (4.50-11.00)
[2023-10-07 06:50] LABS: Amphetamine Screen Urine Negative (Negative); Barbiturate Screen Urine Negative (Negative); Benzodiazepines Screen Urine Negative (Negative); Cannabinoid Screen Urine Negative (Negative); Cocaine Screen Urine Negative (Negative); Methadone Screen Urine Negative (Negative); Methamphetamines Screen Urine Negative (Negative); Opiate Screen Urine POSITIVE (Negative); Oxycodone Screen Urine Negative (Negative); Phencyclidine Screen Urine Negative (Negative); Tricyclic Antidepressant Urine Negative (Negative)
[2023-10-07 06:58] LABS: Slide Review Reflex No
--- NOTE | 2023-10-07 07:03 | PC.NURSE ---
Arrived to floor?at 0205. A&O, pleasant and cooperative. Pt shaky and teary at admission. Pt is guarding abdomen and rating pain 9/10. See eMAR for interventions. Pt hypertensive VS otherwise stable. Nicotine patch placed on left shoulder. Pt does report that she has cigarettes in personal belonging bag. Healthcare Consultant offered to lock up purse, including cigarettes, pt declined. Healthcare Consultant informed pt on hospital smoking policy and pt agreeable to policy. CWAS unremarkable. SBA to bathroom.
[2023-10-07 07:15] LABS: Chloride* 103 mmol/L (96-114); Potassium* 4.2 mmol/L (3.6-5.1); Sodium* 136 mmol/L (135-149)
[2023-10-07 07:18] LABS: Anion Gap 9 mEq/L (7-15); Blood Urea Nitrogen* 8 mg/dL (5-24); Carbon Dioxide* 24 mmol/L (20-32); Creatinine* 0.4 mg/dL (0.5-1.5); Est. Creatinine Clearance* 203.68; Estimated Glomerular Filt Rate 135 ml/min
[2023-10-07 07:19] LABS: Calcium* 8.4 mg/dL (8.4-10.6); Glucose* 74 mg/dL (60-115)
[2023-10-07] MEDS: SODIUM CHLORIDE 0.9 % (FLUSH) 10 ML SYRINGE 5 ML IVF ×2 (08:24→12:00)
[2023-10-07] MEDS: MULTIVITAMIN/MINERALS 1 TABLET 1 TAB PO (10:10)
[2023-10-07] MEDS: FOLIC ACID 1 MG TABLET PO (10:11)
[2023-10-07 11:44] LABS: Albumin* 4.2 g/dL (3.3-5.0)
[2023-10-07 11:46] LABS: Aspartate Amino Transferase* 66 U/L (12-35); Bilirubin Direct* 0.7 mg/dL (0.0-0.5); Total Protein* 7.2 g/dL (6.0-8.3)
[2023-10-07 11:47] LABS: Alanine Aminotransferase* 87 U/L (4-35); Alkaline Phosphatase* 77 U/L (40-150)
--- NOTE | 2023-10-07 12:34 | P.IMPN_ITS ---
Progress Note: A&P Assessment and plan (1) Acute pancreatitis: Problem details: Due to alcohol abuse. IV fluids, IV pain medications, IV antiemetics. Advance diet as tolerated. Discharge to home when tolerating p.o. intake. Monitor for complications. Status: Acute (2) Hepatic steatosis: Problem details: Likely due to alcohol abuse. Status: Acute (3) Alcohol use disorder: Problem details: With complications of alcohol use patient is at high risk for recurrent and chronic pancreatitis and complications of fatty liver with ongoing use. Recommend abstinence. Off her options for support in maintaining abstinence Status: Acute Plan Continue in hospital for management of acute pancreatitis. Monitor and manage alcohol withdrawal. Time Spent With Patient Total time spent: Total time spent today is 55 minutes, 35 minutes in coordination care discussing with patient, her aunt and other providers management of pancreatitis related to alcohol abuse Subjective Date Seen: 10/07/23 Interval history: 33-year-old female admitted to the hospital with acute on chronic abdominal pain. Patient reports that she has had abdominal pain for a year. It tends to come and go. In the last 4 days has gotten severe. She has been into the emergency room here and at other hospitals in the past where she is diagnosed with pancreatitis due to alcohol abuse. She has been advised to stop drinking. She reports that she stopped drinking up until when she had some alcohol. She reports nothing to drink before that or since then. Her alcohol level in the emergency department last night was 0.07. This past summer as well as today she had right upper quadrant ultrasound showing normal gallbladder. She is found to have fatty liver on ultrasound and on CT scan has had pancreatitis. She has had an elevated lipase when she has been diagnosed with pancreatitis in the past. Overnight she feels a little bit better but still having quite a bit of abdominal pain. She still has some nausea as well. She has tried a little bit of clear liquids but this she does not tolerate well yet. She is on IV fluids, IV pain medicines and IV antiemetics Other than her abdominal pain she reports that she has had any amenorrhea for the last 8 months. She was referred to endocrinology but her insurance declined this. August 09 she had blood tests obtained to evaluate her amenorrhea with findings including normal levels of the following: TSH, estradiol, prolactin, testosterone, sex hormone binding globulin, DHEA sulfate, 17 hydroxyprogesterone. Exam Narrative: Exam Narrative: She is alert and appears in no distress. Eyes normal. Sclerae nonicteric. Oropharynx normal. Neck is supple without mass or adenopathy. Respirations are clear to auscultation. Cardiovascular: S1, S2, regular rate and rhythm. Abdomen: Bowel sounds are diminished. Abdomen is soft with diffuse tenderness moderate in the epigastrium and mild in the lower abdomen. No mass. No peritonitis. Extremities without edema. Good peripheral perfusion. Const: Vital Signs, click to edit/add: Vital Signs - 24 hr 10/06/23 22:16 10/06/23 23:00 10/06/23 23:01 Temperature 97.4 F L Pulse Rate 104 H 101 H Pulse Rate [Pulse Oximeter] 109 H Respiratory Rate 18 Blood Pressure 135/96 H Blood Pressure [Ri ght Arm] Blood Pressure [Ri ght Upper Arm] 136/87 Pulse Oximetry 98 93 94 Oxygen Delivery Me thod Room Air 10/06/23 23:02 10/06/23 23:30 10/07/23 00:00 Temperature Pulse Rate 100 105 H 115 H Pulse Rate [Pulse Oximeter] Respiratory Rate Blood Pressure Blood Pressure [Ri ght Arm] Blood Pressure [Ri ght Upper Arm] Pulse Oximetry 93 95 95 Oxygen Delivery Me thod Room Air 10/07/23 00:01 10/07/23 00:01 10/07/23 00:01 Temperature Pulse Rate 103 H 103 H 103 H Pulse Rate [Pulse Oximeter] Respiratory Rate Blood Pressure 107/77 107/77 107/77 Blood Pressure [Ri ght Arm] Blood Pressure [Ri ght Upper Arm] Pulse Oximetry 96 96 96 Oxygen Delivery Me thod 10/07/23 00:01 10/07/23 00:08 10/07/23 00:30 Temperature Pulse Rate 103 H 110 H Pulse Rate [Pulse Oximeter] Respiratory Rate Blood Pressure 107/77 Blood Pressure [Ri ght Arm] Blood Pressure [Ri ght Upper Arm] Pulse Oximetry 96 94 94 Oxygen Delivery Me thod 10/07/23 01:00 10/07/23 01:01 10/07/23 01:16 Temperature 97.4 F L Pulse Rate 100 103 H Pulse Rate [Pulse Oximeter] Respiratory Rate Blood Pressure 120/88 Blood Pressure [Ri ght Arm] Blood Pressure [Ri ght Upper Arm] Pulse Oximetry 94 94 Oxygen Delivery Me thod 10/07/23 01:30 10/07/23 02:05 10/07/23 02:06 Temperature 98.0 F 98.0 F 98.0 F Pulse Rate 99 Pulse Rate [Pulse Oximeter] 99 99 Respiratory Rate 20 20 20 Blood Pressure 125/78 Blood Pressure [Ri ght Arm] Blood Pressure [Ri ght Upper Arm] 121/78 121/78 Pulse Oximetry 97 97 Oxygen Delivery Me thod Room Air 10/07/23 02:20 10/07/23 03:49 Temperature 98.6 F 98.6 F Pulse Rate Pulse Rate [Pulse Oximeter] 100 100 Respiratory Rate 20 20 Blood Pressure Blood Pressure [Ri ght Arm] 141/97 H 141/97 H Blood Pressure [Ri ght Upper Arm] Pulse Oximetry 97 97 Oxygen Delivery Me thod Room Air Room Air Documenting provider has reviewed patient's vital signs: yes Labs Labs: Laboratory Results - last 24 hr 10/06/23 10/06/23 10/06/23 22:25 22:26 22:26 WBC 6.67 RBC 4.82 Hgb 16.7 H Hct 48.5 MCV 101 H MCH 35 H MCHC 34 RDW Coeff of Ronald 14.7 Plt Count 180 Neut % (Auto) 80.6 H Lymph % (Auto) 13.0 L [place]elope % (Auto) 5.4 Eos % (Auto) 0.6 Baso % (Auto) 0.3 Neut # (Auto) 5.40 Lymph # (Auto) 0.90 Antelope # (Auto) 0.40 Eos # (Auto) 0.04 Baso # (Auto) 0.02 Abs Immat Gran (auto) 0.01 Imm/Tot Granulo (auto) 0.1 Sodium 139 Potassium 4.0 Chloride 100 Carbon Dioxide 21 Anion Gap 18 H BUN 9 Creatinine 0.4 L Estimated Creat Clear 211.01 Estimated GFR 135 Glucose 92 Lactate 3.2 H Calcium 9.4 Total Bilirubin 2.0 H Direct Bilirubin 0.8 H AST 82 H ALT 111 H Alkaline Phosphatase 107 Total Protein 9.2 H Albumin 5.3 H Amylase 416 H Cancelled Lipase 5175 H Urine Color Urine Appearance Urine pH Ur Specific [place] Urine Protein Urine Glucose (UA) Urine Ketones Urine Blood Urine Nitrite Urine Bilirubin Urine Urobilinogen Ur Leukocyte Esterase Urine RBC Urine WBC Ur Squamous Epith Cells Urine Bacteria Urine Mucus Urine HCG, Qual Urine Opiates Screen Ur Oxycodone Screen Urine Methadone Screen Ur Propoxyphene Screen Ur Barbiturates Screen U Tricyclic Antidepress Ur Phencyclidine Scrn Ur Amphetamines Screen U Methamphetamines Scrn U Benzodiazepines Scrn Urine Cocaine Screen U Marijuana (THC) Screen Ur Drug Screen Comment Ethyl Alcohol Lab Acknowledgement 10/06/23 10/06/23 10/06/23 22:26 22:40 22:42 WBC RBC Hgb Hct MCV MCH MCHC RDW Coeff of Ronald Plt Count Neut % (Auto) Lymph % (Auto) Antelope % (Auto) Eos % (Auto) Baso % (Auto) Neut # (Auto) Lymph # (Auto) Antelope # (Auto) Eos # (Auto) Baso # (Auto) Abs Immat Gran (auto) Imm/Tot Granulo (auto) Sodium Potassium Chloride Carbon Dioxide Anion Gap BUN Creatinine Estimated Creat Clear Estimated GFR Glucose Lactate Calcium Total Bilirubin Direct Bilirubin AST ALT Alkaline Phosphatase Total Protein Albumin Amylase Lipase Cancelled Urine Color Cynthia A Urine Appearance Cloudy A Urine pH 6.0 Ur Specific [place] >= 1.030 Urine Protein 2+ A Urine Glucose (UA) Negative Urine Ketones 3+ A Urine Blood Trace-lysed A Urine Nitrite Negative Urine Bilirubin 1+ A Urine Urobilinogen 1.0 Ur Leukocyte Esterase Negative Urine RBC 2-5 A Urine WBC 2-5 Ur Squamous Epith Cells Moderate A Urine Bacteria Few A Urine Mucus Few A Urine HCG, Qual Negative Urine Opiates Screen Ur Oxycodone Screen Urine Methadone Screen Ur Propoxyphene Screen Ur Barbiturates Screen U Tricyclic Antidepress Ur Phencyclidine Scrn Ur Amphetamines Screen U Methamphetamines Scrn U Benzodiazepines Scrn Urine Cocaine Screen U Marijuana (THC) Screen Ur Drug Screen Comment Ethyl Alcohol 0.07 H Lab Acknowledgement Cancelled 10/07/23 10/07/23 10/07/23 06:10 07:00 Unknown WBC 5.94 RBC 4.00 Hgb 14.0 Hct 40.9 MCV 102 H MCH 35 H MCHC 34 RDW Coeff of Ronald 15.0 Plt Count 136 L Neut % (Auto) 75.3 H Lymph % (Auto) 15.3 L [place] % (Auto) 6.9 Eos % (Auto) 2.0 Baso % (Auto) 0.3 Neut # (Auto) 4.50 Lymph # (Auto) 0.90 Antelope # (Auto) 0.40 Eos # (Auto) 0.12 Baso # (Auto) 0.02 Abs Immat Gran (auto) 0.01 Imm/Tot Granulo (auto) 0.2 Sodium 136 Potassium 4.2 Chloride 103 Carbon Dioxide 24 Anion Gap 9 BUN 8 Creatinine 0.4 L Estimated Creat Clear 203.68 Estimated GFR 135 Glucose 74 Lactate 0.6 Calcium 8.4 Total Bilirubin 2.0 H Direct Bilirubin 0.7 H AST 66 H ALT 87 H Alkaline Phosphatase 77 Total Protein 7.2 Albumin 4.2 Amylase Lipase Urine Color Urine Appearance Urine pH Ur Specific [place] Urine Protein Urine Glucose (UA) Urine Ketones Urine Blood Urine Nitrite Urine Bilirubin Urine Urobilinogen Ur Leukocyte Esterase Urine RBC Urine WBC Ur Squamous Epith Cells Urine Bacteria Urine Mucus Urine HCG, Qual Urine Opiates Screen POSITIVE A Ur Oxycodone Screen Negative Urine Methadone Screen Negative Ur Propoxyphene Screen Negative Ur Barbiturates Screen Negative U Tricyclic Antidepress Negative Ur Phencyclidine Scrn Negative Ur Amphetamines Screen Negative U Methamphetamines Scrn Negative U Benzodiazepines Scrn Negative Urine Cocaine Screen Negative U Marijuana (THC) Screen Negative Ur Drug Screen Comment See Note Ethyl Alcohol Lab Acknowledgement
--- NOTE | 2023-10-07 14:05 | NUTR.NU ---
RDN with nutrition screen for pancreatitis. Patient agreed to receive diet education related to pancreatitis. Patient was provided diet education on a low fat diet. Discussed foods to include and foods to avoid. Education also provided following a low fat diet (about 60 grams/day) long-term. Verbal and written information as well as a sample menu provided from [facility]. Patient verbalized understanding. RDN's contact information was provided and patient was encouraged to contact RDN with questions. RDN to follow-up PRN.
--- NOTE | 2023-10-07 14:13 | PC.SOCIAL ---
French Binding Folder Consult: Met with pt today to offer resources if needed. Pt stated that she does not feel she needs to go to Substance Abuse Treatment for alcohol and that she can stop drinking on her own. Pt said she drank a lot of alcohol due to the holiday and family gatherings, but had stopped drinking for 60 days prior to that after her last flare up from pancreatitis. Pt stated that she has come to the conclusion that she cannot drink alcohol at all, even on a holiday. Social work to follow-up as needed.
[2023-10-07] MEDS: OXYCODONE 5 MG TABLET PO ×2 (14:58→19:08)
[2023-10-07] MEDS: ACETAMINOPHEN 325 MG TABLET 650 MG PO (14:58)
--- NOTE | 2023-10-07 16:03 | PC.NURSE ---
Pt slept at onset of day shift. At initial assessment she stated her abdominal pain was 10 out of 10. 4 mg of IV morphine provided and pt stated her pain was 6-7. Pt received IV morphine 4mg approximately 2 horus later and rated her pain 6 out of 10 which was treated with 4 mg IV Morphine. IV Zosyn provided for nausea during Dr. Fletcher's rounding evaluation this am, pt's aunt listening and participating at bedside during hospitalist visit. Monika Bennett RN provided another dose of IV morphine 4mg for pain 10 out of 10 after she had tried a CL bkfst tray. Pt did not appear to be in acute distress during these pain evaluations. RN allowed pt to rest intermittently in dark room. Oxycodone 5mg with 650 mg of tylenol provided at shift change for pain 8 out of 10. Report to Jennifer Zamorano RN for evening shift. Pt independent in room and UAL. Continue plan of care.
[2023-10-07] MEDS: MELATONIN 3 MG TABLET PO (21:09)
--- NOTE | 2023-10-07 22:38 | PC.NURSE ---
Shift [id number]- Patient rates pain 4/10 this afternoon after pain scale explained. She has some nausea this afternoon, resolved with zofran- see eMAR. She states increased pain after attempting intake of clears from meal tray. Therefore, she is encouraged to minimize intake. Appears satisfied with pain control from oxycodone this shift. Up independently.
[2023-10-08] VITALS (9 sets, daily range): BP systolic 126–140; BP diastolic 82–108; PULSE 79–95; RESP 16; TEMP 36.4–37.3; O2SAT 95–98
[2023-10-08] MEDS: OXYCODONE 5 MG TABLET PO ×6 (00:39→21:30)
[2023-10-08] MEDS: ACETAMINOPHEN 325 MG TABLET 650 MG PO ×3 (00:39→21:30)
[2023-10-08] MEDS: ONDANSETRON 2 MG/ML inj 4 MG IVP ×3 (04:00→17:26)
[2023-10-08] MEDS: PANTOPRAZOLE SODIUM 40 MG INJ IVP (04:02)
[2023-10-08] MEDS: 0.9 % SODIUM CHLORIDE 1000 ml 1,000 ML 125 ML IV ×3 (04:04→19:05)
[2023-10-08] MEDS: THIAMINE 100 MG TABLET PO (04:05)
[2023-10-08] MEDS: NICOTINE 14 mg PATCH 1 PATCH TRANSDERMA (04:05)
--- NOTE | 2023-10-08 06:01 | PC.NURSE ---
End of shift [id number]: Pt A&O and VSS overnight with exception to low-grade fever T-max 99.1 in which PRN Tylenol provided relief. Pt c/o LUQ to mid abdominal pain rating it 7/10; PRN oxycodone given x1 dose @ 0040. Had c/o nausea in early AM so PRN zofran given x1 dose @ 0400. NS infusing @ 125 mL/hr. CIWA scores: 1 > 2, scoring positive on mild nausea & mild headache.?Nicotine patch placed on patient?s right posterior shoulder. Pt was independent in her room with no c/o dizziness. Total output: 900 mL mayur colored urine. Tolerated water intake but no other clears.
[2023-10-08] MEDS: FOLIC ACID 1 MG TABLET PO (09:11)
[2023-10-08] MEDS: MULTIVITAMIN/MINERALS 1 TABLET 1 TAB PO (09:12)
[2023-10-08 11:21] LABS: Lipase* 3490 U/L (23-300)
--- NOTE | 2023-10-08 16:11 | PM.IMPN1 ---
Progress Note: A&P Assessment and plan (1) Acute pancreatitis: Problem details: Due to alcohol abuse. IV fluids, IV pain medications, IV antiemetics. Advance diet as tolerated. Discharge to home when tolerating p.o. intake. Monitor for complications. Gradually improving Status: Acute (2) Hepatic steatosis: Problem details: Likely due to alcohol abuse. Status: Acute (3) Alcohol use disorder: Problem details: With complications of alcohol use patient is at high risk for recurrent and chronic pancreatitis and complications of fatty liver with ongoing use. Recommend abstinence. Off her options for support in maintaining abstinence Status: Acute Plan continue in hospital for management of pain, IV fluids, monitoring for complications. Total time spent today is 25 minutes, 15 minutes in coordination of care and discussing with patient and other providers management of alcohol use disorder and pancreatitis Subjective Date Seen: 10/08/23 Interval history: 33-year-old female admitted to the hospital with acute on chronic abdominal pain. Patient reports that she has had abdominal pain for a year. It tends to come and go. In the last 4 days has gotten severe. She has been into the emergency room here and at other hospitals in the past where she is diagnosed with pancreatitis due to alcohol abuse. She has been advised to stop drinking. She reports that she stopped drinking up until when she had some alcohol. She reports nothing to drink before that or since then. Her alcohol level in the emergency department last night was 0.07. This past summer as well as today she had right upper quadrant ultrasound showing normal gallbladder. She is found to have fatty liver on ultrasound and on CT scan has had pancreatitis. She has had an elevated lipase when she has been diagnosed with pancreatitis in the past. Overnight she feels a little bit better but still having quite a bit of abdominal pain. She still has some nausea as well. She has tried a little bit of clear liquids but this she does not tolerate well yet. She is on IV fluids, IV pain medicines and IV antiemetics Other than her abdominal pain she reports that she has had any amenorrhea for the last 8 months. She was referred to endocrinology but her insurance declined this. August 09 she had blood tests obtained to evaluate her amenorrhea with findings including normal levels of the following: TSH, estradiol, prolactin, testosterone, sex hormone binding globulin, DHEA sulfate, 17 hydroxyprogesterone. she continues have problems with pain and nausea. She has only had a little bit of a clear liquid diet. She tried to eat a sandwich today and then had an emesis afterwards. Still needing opioids for pain control. Exam Narrative: Exam Narrative: She is alert and appears in no distress. Respirations are clear to auscultation. Cardiovascular: S1, S2, regular rate and rhythm. Abdomen: Bowel sounds are very active. Abdomen is soft with much improved tenderness compared to yesterday, primarily in the epigastrium and left upper quadrant. No significant edema. Const: Vital Signs, click to edit/add: Vital Signs - 24 hr 10/07/23 19:16 10/07/23 23:00 10/07/23 23:00 Temperature 98.5 F 99.1 F Pulse Rate [Pulse Oximeter] 91 93 93 Respiratory Rate 18 16 16 Blood Pressure [Le ft Arm] 122/92 H Blood Pressure [Ri ght Arm] 139/104 H Pulse Oximetry 97 94 Oxygen Delivery Me thod Room Air Room Air 10/08/23 00:39 10/08/23 03:00 10/08/23 07:38 Temperature 99.1 F 98.3 F 97.6 F Pulse Rate [Pulse Oximeter] 84 80 Respiratory Rate 16 16 Blood Pressure [Le ft Arm] 134/103 H 126/82 Blood Pressure [Ri ght Arm] Pulse Oximetry 97 95 Oxygen Delivery Me thod Room Air Room Air 10/08/23 07:40 10/08/23 11:33 10/08/23 14:57 Temperature 97.5 F L 98.1 F 97.5 F L Pulse Rate [Pulse Oximeter] 80 95 82 Respiratory Rate 16 16 16 Blood Pressure [Le ft Arm] 126/82 138/98 H 131/99 H Blood Pressure [Ri ght Arm] Pulse Oximetry 95 96 98 Oxygen Delivery Me thod Room Air Room Air Room Air 10/08/23 14:58 Temperature 97.5 F L Pulse Rate [Pulse Oximeter] 82 Respiratory Rate 16 Blood Pressure [Le ft Arm] 131/99 H Blood Pressure [Ri ght Arm] Pulse Oximetry 98 Oxygen Delivery Me thod Room Air Documenting provider has reviewed patient's vital signs: yes Labs Labs: Laboratory Results - last 24 hr 10/07/23 10/08/23 06:10 10:41 Total Bilirubin 2.0 H Direct Bilirubin 0.7 H AST 66 H ALT 87 H Alkaline Phosphatase 77 Total Protein 7.2 Albumin 4.2 Lipase 3490 H Lab Acknowledgement Test Added
--- NOTE | 2023-10-08 19:10 | PC.NURSE ---
Pt alert and oriented. Pt had complaints of pain ranging from- ; see EMAR for intervention. Pt up walking in hallways. Pt had nausea early afternoon after eating; see EMAR for intervention. Pt advanced to regular diet in evening and tolerated well; pre medicated before supper. Pt had abdominal pain and tenderness.
[2023-10-08] MEDS: SODIUM CHLORIDE 0.9 % (FLUSH) 10 ML SYRINGE 5 ML IVF (21:31)
[2023-10-08] MEDS: MELATONIN 3 MG TABLET PO (21:31)
[2023-10-09] MEDS: 0.9 % SODIUM CHLORIDE 1000 ml 1,000 ML 125 ML IV (02:35)
[2023-10-09] MEDS: ACETAMINOPHEN 325 MG TABLET 650 MG PO (02:36)
[2023-10-09] MEDS: PANTOPRAZOLE SODIUM 40 MG INJ IVP (06:25)
[2023-10-09] MEDS: NICOTINE 14 mg PATCH 1 PATCH TRANSDERMA (06:25)
[2023-10-09] MEDS: ONDANSETRON 2 MG/ML inj 4 MG IVP ×2 (06:26→10:15)
[2023-10-09] MEDS: OXYCODONE 5 MG TABLET PO ×2 (06:26→11:24)
[2023-10-09] MEDS: SODIUM CHLORIDE 0.9 % (FLUSH) 10 ML SYRINGE 5 ML IVF (06:28)
[2023-10-09 06:54] LABS: Basophils Percent Auto 0.6 % (0.0-3.0); Eosinophils Percent Auto 6.6 % (0.0-7.0); Hematocrit 41.2 % (33.0-51.0); Hemoglobin* 14.2 gm/dL (12.0-16.0); Immature Granulocytes Pct Auto 0.3 %; Lymphocytes Percent Auto 23.2 % (20-44); Mean Corpuscular HGB Conc 35 gm/dL (32-36); Mean Corpuscular Hemoglobin 35 pg (26-34); Mean Corpuscular Volume 101 fL (80-100); Monocytes Percent Auto 7.5 % (0.0-11.0); Neutrophils Percent Auto 61.8 % (42.0-72.0); Platelet Count* 118 K/uL (140-440); RDW Coefficient of Variation % 14.1 % (11.5-15.5); Red Blood Count 4.07 m/uL (4.00-5.20); White Blood Count* 3.62 K/uL (4.50-11.00)
[2023-10-09 07:04] LABS: Slide Review Reflex No
[2023-10-09 07:11] LABS: Albumin* 4.1 g/dL (3.3-5.0)
[2023-10-09 07:12] LABS: Chloride* 103 mmol/L (96-114); Potassium* 3.6 mmol/L (3.6-5.1); Sodium* 137 mmol/L (135-149)
[2023-10-09 07:14] LABS: Alkaline Phosphatase* 72 U/L (40-150); Anion Gap 12 mEq/L (7-15); Aspartate Amino Transferase* 63 U/L (12-35); Bilirubin Direct* 0.8 mg/dL (0.0-0.5); Bilirubin Total* 1.7 mg/dL (0.1-1.5); Blood Urea Nitrogen* 3 mg/dL (5-24); Carbon Dioxide* 22 mmol/L (20-32); Creatinine* 0.4 mg/dL (0.5-1.5); Est. Creatinine Clearance* 203.68; Estimated Glomerular Filt Rate 135 ml/min; Total Protein* 7.3 g/dL (6.0-8.3)
[2023-10-09 07:15] LABS: Alanine Aminotransferase* 69 U/L (4-35); Calcium* 8.7 mg/dL (8.4-10.6); Glucose* 76 mg/dL (60-115)
[2023-10-09 07:27] LABS: Lipase* 2100 U/L (23-300)
--- NOTE | 2023-10-09 07:57 | PC.NURSE ---
Pt allowed to sleep til she woke up. No nausea til 600 this am . Zofran given. Pt back to sleep. VSS Has been tolerating clears well. Up ambulated 1 during night.
[2023-10-09 09:00] VITALS: BP 128/101; PULSE 80; RESP 16; TEMP 36.2; O2SAT 99
[2023-10-09 09:05] VITALS: BP 128/101; PULSE 80; RESP 16; TEMP 36.2; O2SAT 99
[2023-10-09] MEDS: FOLIC ACID 1 MG TABLET PO (09:12)
[2023-10-09] MEDS: THIAMINE 100 MG TABLET PO (09:12)
[2023-10-09] MEDS: MULTIVITAMIN/MINERALS 1 TABLET 1 TAB PO (09:13)
--- NOTE | 2023-10-09 09:29 | PM.DS1 ---
DS: Providers Provider Date Seen: 10/09/23 Date of admission: 10/07/23 03:36 Primary care physician: Liz Ortez PA-C Admitting Clinician: Danisha Joe MD Attending Physician on discharge: Maryuri Garcia MD Date of Discharge: 10/09/23 DS: Diagnosis Discharge Diagnosis (1) Acute pancreatitis: Status: Acute Problem details: - 2/2 ETOH use - improved during stay; lipase trended downward and patient able to tolerate po intake (2) Hepatic steatosis: Status: Acute Problem details: - likely 2/2 ETOH use (3) Alcohol use disorder: Status: Acute Problem details: - recommend abstinence, patient aware DS: Summary Hospital Course Hospital Course: Patient is a 33-year-old female with a history of pancreatitis and alcohol abuse who presented to the hospital on 10/07 with abdominal pain. Imaging and labs c/w recurrent pancreatitis. She was kept NPO for 1 day, then slowly advanced diet. She is able to tolerate oral pain medications and antiemetics on hospital day 2, and felt comfortable discharging home. She was also found to have fatty liver disease and elevated LFTs, also likely related to alcohol overuse. She was encouraged to abstain totally upon discharge. Status at Discharge Functional status at discharge: independent ambulation Overall status at discharge: patient is progressing back to baseline Time Spent with Patient Time attestation: Total time spent providing and/or coordinating discharge services: Time spent: Less than 30 minutes Exam Narrative: Exam Narrative: GEN: Alert and oriented, sitting comfortably in bed HEENT: no scleral icterus CV: RRR, No concerning murmurs R: LCTA bilaterally without concerning wheezing Ab: Soft and tolerates palpation Ext: wwp, no concerning edema Skin: No concerning skin lesions or rashes on exposed skin Neuro: Nonfocal Psych: Appropriate Const: Vital Signs, click to edit/add: Vital Signs - 24 hr 10/08/23 11:33 10/08/23 14:57 10/08/23 14:58 Temperature 98.1 F 97.5 F L 97.5 F L Pulse Rate [Pulse Oximeter] 95 82 82 Respiratory Rate 16 16 16 Blood Pressure [Le ft Arm] 138/98 H 131/99 H 131/99 H Pulse Oximetry 96 98 98 Oxygen Delivery Me thod Room Air Room Air Room Air 10/08/23 20:31 10/08/23 23:00 Temperature 97.7 F 97.8 F Pulse Rate [Pulse Oximeter] 82 79 Respiratory Rate 16 16 Blood Pressure [Le ft Arm] 134/108 H 140/106 H Pulse Oximetry 97 95 Oxygen Delivery Me thod Room Air Room Air DS: Data Data Completed and Pending Labs on day of discharge: Labs from last 24 hours 10/09/23 10/08/23 10/07/23 06:21 10:41 06:10 WBC 3.62 L RBC 4.07 Hgb 14.2 Hct 41.2 MCV 101 H MCH 35 H MCHC 35 RDW Coeff of Ronald 14.1 Plt Count 118 L Neut % (Auto) 61.8 Lymph % (Auto) 23.2 Oliver % (Auto) 7.5 Eos % (Auto) 6.6 Baso % (Auto) 0.6 Neut # (Auto) 2.20 Lymph # (Auto) 0.80 L Oliver # (Auto) 0.30 Eos # (Auto) 0.20 Baso # (Auto) 0.00 Abs Immat Gran (auto) 0.00 Imm/Tot Granulo (auto) 0.3 Sodium 137 Potassium 3.6 Chloride 103 Carbon Dioxide 22 Anion Gap 12 BUN 3 L Creatinine 0.4 L Estimated Creat Clear 203.68 Estimated GFR 135 Glucose 76 Calcium 8.7 Total Bilirubin 1.7 H 2.0 H Direct Bilirubin 0.8 H 0.7 H AST 63 H 66 H ALT 69 H 87 H Alkaline Phosphatase 72 77 Total Protein 7.3 7.2 Albumin 4.1 4.2 Lipase 2100 H 3490 H Lab Acknowledgement Test Added Discharge Plan Discharge Disposition: Home, Self-Care Date of Admission: 10/07/23 03:36 Attending Provider on Discharge: Maryuri Garcia Primary Care Provider: Liz Ortez Condition: Improved Anticipated Discharge Date/Time: 10/09/23 13:00 Discharge Medications: New oxycodone 5 mg Tablet 5 mg PO Q6H PRNQty: 10 0RF ondansetron 4 mg tablet,disintegrating 4 mg PO Q8H PRN (Reason: nausea and vomiting) Qty: 14 0RF Continued hydroxyzine pamoate 25 mg capsule 25 - 50 mg PO QHS Qty: 60 0RF Rx Instructions: 1-2 capsules per night for sleep aide pantoprazole [Protonix] 40 mg tablet,delayed release (DR/EC) 40 mg PO Q48H Discontinued ondansetron 4 mg tablet,disintegrating 4 mg PO Q8H PRN (Reason: nausea and vomiting) Qty: 20 0RF Rx Instructions: once every 8 hours as needed for nausea Discharge Orders: Discharge Order (Routine); Ordered 10/09/23 Ordered By: Maryuri Garcia Patient Education: Oxycodone, Rapid Release (By mouth), Ondansetron (By mouth), Pancreatitis (DC), Alcohol Use Disorder (DC) Additional Instructions: Pain medication and Zofran at [facility]. NO MORE ETOH USE - at all; you have evidence of liver damage and recurrent pancreatitis. [place] diet, advance as tolerated. Activity Level: Activity as Tolerated Discharge Diet: Regular Follow Up Appointments: Liz Ortez PA-C [Primary Care Provider] - 10/14/23 11:00 am ([facility] for follow-up.) Forms: [employer] Info Instructions
[2023-10-09 11:00] VITALS: BP 145/105; PULSE 80; RESP 16; TEMP 36.3; O2SAT 98
--- NOTE | 2023-10-09 11:55 | PC.NURSE ---
Pt alert and oriented. Pt had complaints of pain ranging from 4-6; see EMAR for intervention. Pt had complaint of nausea mid morning; see EMAR for intervention. Pt independent in room. Pt's IV removed catheter intact. Pt's nicotine patch removed. Pt discharged home.
== END 2023-10-09 11:47 | disposition home or self-care (01) | DRG 282 ==
LOC: ED 10-07 01:05 → MEDSURG 10-07 02:03
PROVIDERS: Admitting Provider Internal Medicine; Emergency Provider Family Medicine; PCP Physician Assistant Medical; Visit Provider Family Medicine
DX: K85.20 Alcohol induced acute pancreatitis without necrosis or infection (principal); K70.0 Alcoholic fatty liver; F10.188 Alcohol abuse with other alcohol-induced disorder; Y90.3 Blood alcohol level of 60-79 mg/100 ml; K21.9 Gastro-esophageal reflux disease without esophagitis; I10 Essential (primary) hypertension; F17.200 Nicotine dependence, unspecified, uncomplicated
CPT/HCPCS: 36415; 74177; 76705; 80048; 80076; 80306; 81003; 81015; 81025; 82077; 82150; 83605; 83690; 85025; 87086; 94761; 99284; 99285; A9153; A9270; C9113; J1885; J2270; J2405; J7030; J7120; Q9967; S4990

== ENCOUNTER 2023-10-14 11:29 | Outpatient (CLI) | payer BC, SELFPAY | END 2023-10-14 11:30 | disposition home or self-care (01) | PROVIDERS: PCP Physician Assistant Medical; Visit Provider Physician Assistant Medical | DX: K85.90 Acute pancreatitis without necrosis or infection, unspecified (principal); E87.6 Hypokalemia; I10 Essential (primary) hypertension; G47.9 Sleep disorder, unspecified; R71.8 Other abnormality of red blood cells; R79.89 Other specified abnormal findings of blood chemistry | CPT/HCPCS: 80053; 83690; 87086; 87186 ==

== ENCOUNTER 2023-10-25 09:24 | Outpatient (CLI) | payer BC, SELFPAY | END 2023-10-25 09:25 | disposition home or self-care (01) | PROVIDERS: PCP Physician Assistant Medical; Visit Provider Physician Assistant | DX: R35.0 Frequency of micturition (principal); N91.2 Amenorrhea, unspecified; R79.89 Other specified abnormal findings of blood chemistry | CPT/HCPCS: 80053; 80061; 82024; 82533; 82670; 83001; 83690; 84146; 84443; 87086 ==

== ENCOUNTER 2023-11-15 13:24 | Outpatient (CLI) | payer BC, SELFPAY ==
[2023-11-16 00:08] LABS: Chlamydia DNA Amplified* Not Detected (No Detected); GC DNA Amplified* Not Detected (No Detected)
== END 2023-11-15 13:25 | disposition home or self-care (01) ==
LOC: LKVREF 13:25
PROVIDERS: PCP Physician Assistant Medical; Visit Provider Physician Assistant
DX: Z11.3 Encounter for screening for infections with a predominantly sexual mode of transmission (principal)
CPT/HCPCS: 87491; 87591

== ENCOUNTER 2024-03-13 15:57 | Outpatient (CLI) | payer BC, SELFPAY | END 2024-03-13 15:58 | disposition home or self-care (01) | PROVIDERS: PCP Physician Assistant Medical; Visit Provider Physician Assistant Medical | DX: R10.11 Right upper quadrant pain (principal) | CPT/HCPCS: 80053; 83690 ==

== ENCOUNTER 2024-03-30 11:29 | Outpatient (CLI) | payer BC, SELFPAY ==
--- NOTE | 2024-03-30 12:00 | CRLHL7_ITS ---
For Patients: As a result of the Century Cures Act, medical imaging exams and procedure reports are released immediately into your electronic medical record. You may view this report before your referring provider. If you have questions, please contact your health care provider. Indication: Right upper quadrant pain Technique: Nuclear medicine hepatobiliary scan per protocol after the intravenous administration of 5.4 millicuries technetium 99 M Mebrofenin and 1.7 micrograms of CCK. Nausea but no pain with CCK. Comparison: None. Findings: Normal hepatic extraction and excretion of the radiopharmaceutical is present. There is prompt appearance of the common bile duct followed by the gallbladder and in the small bowel. After CCK there is visually normal gallbladder contraction. No enterogastric reflux. Calculated gallbladder ejection fraction is 64 percent. Impression: Normal study. Dictated by Zechariah Johnson MD @ 03/30/2024 4:05:27 PM (Electronically Signed)
== END 2024-03-30 11:30 | disposition home or self-care (01) ==
LOC: NM 11:30
PROVIDERS: PCP Physician Assistant Medical; Visit Provider Physician Assistant Medical
DX: R10.11 Right upper quadrant pain (principal)
CPT/HCPCS: 78227; A9537; J2805

== ENCOUNTER 2025-04-12 22:50 | Emergency (ER) | payer BC, SELFPAY ==
--- OUTSIDE RECORDS SUMMARY | 2025-04-12 22:52 | XMS_ITS | Clinical Summary ---
Author Organization [facility] Address [address] [place] [id number] Care Team Providers Care Pharmacy Resource Tech Name Role Phone [facility]- Primary Care Provider Allergies No known active allergies Medications ibuprofen (ADVIL/MOTRIN) 600 MG tablet Take 1 tablet (600 mg) by mouth every 6 hours as needed for moderate pain 60 tablet 03/24/2017 Active oxyCODONE (ROXICODONE) 5 MG IR tablet Take 1-2 tablets (5-10 mg) by mouth every 6 hours as needed for moderate to severe pain (severe pain) 15 tablet 03/26/2017 Active diazepam (VALIUM) 5 MG tablet Take 1 tablet (5 mg) by mouth every 6 hours as needed for anxiety, sleep or withdrawal. 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 Gender Identity Not on file Sexual Orientation Not on file Last Filed Vital Signs Vital Sign Reading Time Taken Comments Blood Pressure 105/78 12/28/2024 6:36 PM CDT Pulse 113 12/28/2024 6:36 PM CDT Temperature 36.8 C (98.3 F) 12/28/2024 3:21 PM CDT Respiratory Rate 11 12/28/2024 5:38 PM CDT Oxygen Saturation 96% 12/28/2024 6:36 PM CDT Inhaled Oxygen Concentration - - Weight 87.1 kg (192 lb 0.3 oz) 12/28/2024 3:21 P M CDT Height 174 cm (5' 8.5) 12/28/2024 3:21 PM CDT Body Mass Index 28.77 12/28/2024 3:21 PM CDT Plan of Treatment Health Maintenance Due Date Last Done Comments ADVANCE CARE PLANNING 1991 ANNUAL REVIEW OF HM ORDERS 1991 YEARLY PREVENTIVE VISIT 1994 HIV SCREENING 2006 PNEUMOCOCCAL VACCINE: PEDIATRICS (0 to 5 YEARS) AND AT-RISK PATIENTS (6 to 49 YEARS) (1 of 2 - PCV) 2010 PAP 2012 COVID-19 VACCINE ( - season) 2024 PHQ-2 (once per calendar year) 2024 INFLUENZA VACCINE (Season Ended) 2025 DTAP/TDAP/TD VACCINE (8 - Td or Tdap) 07/15/2025 07/15/2015, 02/29/2004, 02/29/2004, Additional history exists ZOSTER VACCINE (1 of 2) 2041 HEPATITIS B VACCINE Completed 01/20/2002, 08/09/2001, 03/08/2001 HEPATITIS C SCREENING Completed 06/02/2023 HPV VACCINE Aged Out No longer eligi ble based on patient's age to complete this topic MENINGITIS VACCINE Aged Out No longer eligible based on patient's age to complete this topic Insurance [employer] [place] [employer] [facility] Care Teams Pharmacy Resource Tech Relationship Specialty Start Date End Date [facility] [id number] [place], [place] [id number] PCP - General 12/28/24
[2025-04-12 22:55] VITALS: BP 140/88; PULSE 130; RESP 20; TEMP 36.6; O2SAT 97; BMI 29.5
--- NOTE | 2025-04-12 23:18 | ED.GENADULT ---
HPI - General Adult General Date Seen: 04/12/25 Chief complaint: Nausea/Vomiting Stated complaint: Vomiting blood, pancreatitis back Time Seen by Provider: 04/12/25 23:05 Source: patient Mode of arrival: ambulatory Limitations: no limitations History of Present Illness HPI narrative: Patient is a 34-year-old female presenting to the emergency department for nausea, vomiting, epigastric pain and hematemesis. Patient has a history of alcohol use disorder and pancreatitis. Was sober for a year up to 1 month ago when she started drinking again. States since then she will have about a 3rd a bottle of vodka a day. Unsure what size the bottle is but states it makes about 8 drinks. Since about 17:00 she started having epigastric pain and nausea. She has vomited multiple times. Occasionally there is jj blood in her vomited other times it is just red streaks. Has never been told she has cirrhosis but does have fatty liver disease. Since the vomiting has been having some chest pressure. Denies any shortness of breath, headache, vision changes, weakness, numbness, diarrhea, constipation, fevers has had some chills. Her epigastric pain she states feels like her previous pancreatitis from a couple years ago. No other concerns noted Related Data Home Medications ?Medication ?Instructions ?Recorded ?Confirmed vitamin B complex (B 1 tab PO QDAY 10/25/23 04/12/25 Complex-Vitamin B12 tablet) Previous Rx's ?Medication ?Instructions ?Recorded escitalopram oxalate 10 mg tablet 10 mg PO QDAY #90 tabs 03/13/24 cetirizine 10 mg tablet 10 mg PO QDAY PRN allergy symptoms 03/23/24 #90 tabs pantoprazole 40 mg tablet,delayed 40 mg PO Q48H #90 tabs 07/26/24 release (Protonix) ondansetron 4 mg disintegrating 4 mg PO Q8H PRN nausea and 08/21/24 tablet vomiting #30 tabs hydroxyzine pamoate 25 mg capsule 25 - 50 mg (1 - 2 x 25 mg) PO QHS 01/05/25 #90 caps Allergies Allergy/AdvReac Type Severity Reaction Status Date / Time honey Allergy Severe Hives Verified 04/13/25 00:28 bees Allergy Intermediate Anaphylaxis Uncoded 04/13/25 00:28 Review of Systems Status of ROS: Reports: 10 or more systems reviewed and unremarkable except as noted in History and below PFSH PFSH Medical History History of incarceration (~02/2024) ?Z78.9 - Other specified health status (ICD-10) Trichomonas vaginitis (~10/2023) ?A59.01 - Trichomonal vulvovaginitis (ICD-10) Pancreatitis ?K85.90 - Acute pancreatitis without necrosis or infection, unspecified (ICD-10) GERD (gastroesophageal reflux disease) ?K21.9 - Gastro-esophageal reflux disease without esophagitis (ICD-10) Amenorrhea ?N91.2 - Amenorrhea, unspecified (ICD-10) Hepatic steatosis ?K76.0 - Fatty (change of) liver, not elsewhere classified (ICD-10) History of ectopic ?Z87.59 - Personal history of other complications of , childbirth and the puerperium (ICD-10) Family History Grandmother Stroke Breast cancer Father High blood pressure High cholesterol Grandfather Diabetes Mother Alcohol dependence Maternal Grandfather Colon cancer Paternal Grandfather Colon cancer Grandmother Lung cancer Social History Narrative: 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 Completed her GED. Smokes 1 pack per day. History of alcohol abuse, currently sober. Denies illicit drug use What is your current living situation?: I presently have a place to live Problems where you live: no known problems Problems where you live details: n/a In the past 12 months, utilities in danger of being shut off: no In past 12 months, lack of transportation kept you from medical appts, meetings, work, or getting things needed for daily living: no In the past 12 mos, have been you worried that your food would run out before you had money to buy more?: never true In the past 12 mos, the food you bought just didn't last and you didn't have money to buy more?: never true Highest level of school completed/degree received: GED or equivalent Smoking Status: Current every day smoker What tobacco products do you use: cigarettes Smoking packs per day: 1 Smoking cigarettes per day: 20.0 How often do you have a drink containing alcohol: never AUDIT-C Alcohol total score: 0 Non-prescribed substance use: denies use How often does anyone, including family, friends and others, physically hurt you: never How often does anyone, including family, friends and others, insult or talk down to you: never How often does anyone, including family, friends and others, threaten you with harm: never How often does anyone, including family, friends and others, scream or curse at you: never service: No Exam Narrative: Exam Narrative: Const: Well-nourished, Well-developed, in mild distress Eyes: PERRL, no conjunctival injection, and symmetrical lids HENT: Atraumatic external nose and ears. Moist mucous membranes. Neck: Symmetric, trachea midline, No thyromegaly. CVS: RRR, No murmurs or gallops. Peripheral pulses 2+ and equal in all extremities RESP: Unlabored respiratory effort. Clear to auscultation bilaterally. GI: Mild epigastric tenderness, Nondistended, No rebound or guarding. MSK:Extremities w/o deformity, Normal Active ROM, mild lower sternal border tenderness that is a sharp pain in nature compared to her previous pressure sensation Skin: Warm, Dry. No rashes or lesions. Neuro: Normal Muscle tone, No focal neurological deficits. Psych: Awake, Alert, & Oriented x3. Appropriate mood and affect. Const: Vital Signs, click to edit/add: Vital Signs - 24 hr 04/12/25 22:55 04/13/25 00:25 Temperature 97.8 F Pulse Rate [Pulse Oximeter] 130 H 102 H Respiratory Rate 20 16 Blood Pressure [Ri ght Upper Arm] 140/88 H 135/94 H Pulse Oximetry 97 98 Oxygen Delivery Me thod Room Air Course Vital Signs Vital signs: Initial Vital Signs Temperature 97.8 F 04/12/25 22:55 Temperature Source Temporal Artery Scan 04/12/25 22:55 Pulse Rate 130 H 04/12/25 22:55 Pulse Rhythm Regular 04/12/25 22:55 Respiratory Rate 20 04/12/25 22:55 Blood Pressure 140/88 H 04/12/25 22:55 Blood Pressure Mean 105 04/12/25 22:55 Pulse Oximetry 97 04/12/25 22:55 Oxygen Delivery Method Room Air 04/12/25 22:55 Vital Signs Temperature 97.8 F 04/12/25 22:55 Pulse Rate 130 H 04/12/25 22:55 Respiratory Rate 20 04/12/25 22:55 Blood Pressure 140/88 H 04/12/25 22:55 Pulse Oximetry 97 04/12/25 22:55 Oxygen Delivery Method Room Air 04/12/25 22:55 Temperature 97.8 F 04/12/25 22:55 Pulse Rate 102 H 04/13/25 00:25 Respiratory Rate 16 04/13/25 00:25 Blood Pressure 135/94 H 04/13/25 00:25 Pulse Oximetry 98 04/13/25 00:25 Oxygen Delivery Method Room Air 04/12/25 22:55 Medications Administered Medications: Discontinued Medications Generic Name Dose Route Start Last Admin Trade Name Wilfredq PRN Reason Stop Dose Admin Lactated Ringer's 1,000 mls @ 1,000 mls/hr 04/12/25 23:21 04/13/25 00:37 Lactated Ringers 1000 Ml IV 04/13/25 00:20 Infused .Q1H ONE Infusion Metoclopramide HCl 10 mg 04/13/25 00:27 04/13/25 00:41 Metoclopramide Hcl 5 Mg/Ml Inj IVP 04/13/25 00:28 10 mg ONCE ONE Administration Morphine Sulfate 4 mg 04/12/25 23:46 04/12/25 23:50 Morphine 4 Mg/Ml Inj IVP 04/12/25 23:47 4 mg ONCE ONE Administration Ondansetron HCl 4 mg 04/12/25 23:11 04/12/25 23:36 Ondansetron 2 Mg/Ml Inj IVP 04/12/25 23:12 4 mg ONCE ONE Administration Thiamine HCl 100 mg 04/13/25 00:19 04/13/25 00:22 Thiamine 100 Mg Tablet PO 04/13/25 00:20 100 mg ONCE ONE Administration Medical Decision Making MDM Narrative Medical decision making narrative: Patient is a 34-year-old female presenting for hematemesis. She is also having some mild chest pain after the vomiting and epigastric pain. This epigastric pain could be just gastritis but I am concerned about pancreatitis so a lipase will be ordered. Will also order a CT scan for better evaluation. She does not have a known diagnosis of cirrhosis and of the intermittent large amount of hematemesis versus the blood tinged existing unlikely to be esophageal varices. Could be bleeding from gastritis. Also possibly Pauly-Ocasio tear. Will continue to monitor though. Chest x-ray will be ordered to make sure there is no perforation of her soften gets causing the chest pain. Also do an EKG and troponin as she is having chest pain. Also urinalysis, CBC, CMP, lipase, urine test. Considering my concern for pancreatitis will give her some lactated Ringer's. Zofran also ordered. Morphine given for pain. Patient's white blood cell count is slightly elevated at 13. This could be related to her vomiting. More likely a stress reaction from the vomiting. Rest of CBC shows no concerning findings. CMP shows no acute concerning findings. Liver function test within normal. Lipase within normal limits. Urinalysis does appear to show she is dehydrated. She does have a ketones in her urine. She does admit she has not eaten much last couple days due to nausea and the alcohol drinking. This is likely the cause. Is not acidotic. Her heart rate has improved to 97 when I was in the room. Her Glasglow-Blatchford bleeding score is now 0. Patient is feeling well enough for discharge. Will discharge her with Zofran be instymeds. She is agreeable to this plan. She was in the room drinking fluids. Lab Data Labs: Lab Results 04/12/25 04/13/25 04/13/25 Range/Units 23:47 00:32 00:33 WBC 13.68 H (4.50-11.00) K/uL RBC 4.88 (4.00-5.20) m/uL Hgb 14.4 (12.0-16.0) gm/dL Hct 42.4 (33.0-51.0) % MCV 87 (80-100) fL MCH 30 (26-34) pg MCHC 34 (32-36) gm/dL RDW Coeff of Ronald 15.0 (11.5-15.5) % Plt Count 304 (140-440) K/uL Neut % (Auto) 85.8 H (42.0-72.0) % Lymph % (Auto) 10.5 L (20-44) % [place] % (Auto) 3.1 (0.0-11.0) % Eos % (Auto) 0.2 (0.0-7.0) % Baso % (Auto) 0.3 (0.0-3.0) % Neut # (Auto) 11.70 H (1.7-7.0) K/uL Lymph # (Auto) 1.40 (0.90-2.90) K/uL [place] # (Auto) 0.40 (0.00-0.90) K/UL Eos # (Auto) 0.00 (0.00-0.50) K/uL Baso # (Auto) 0.00 (0.00-0.30) K/uL Abs Immat Gran (auto) 0.00 (0.00-0.30) K/uL Imm/Tot Granulo (auto) 0.1 % INR 1.00 (0.91-1.10) APTT 30 (23-33) Seconds VBG pH 7.345 (7.32-7.43) VBG pCO2 37 L (40-50) mmHG VBG pO2 31.8 (25-47) mmHG VBG HCO3 20 L (21-28) mmol/L Sodium 140 (135-149) mmol/L Potassium 4.1 (3.6-5.1) mmol/L Chloride 104 (96-114) mmol/L Carbon Dioxide 19 L (20-32) mmol/L Anion Gap 17 H (7-15) mEq/L BUN 9 (5-24) mg/dL Creatinine 0.6 (0.5-1.5) mg/dL Estimated Creat Clear 139.37 Estimated GFR 121 ml/min Glucose 133 H (60-115) mg/dL Calcium 9.6 (8.4-10.6) mg/dL Total Bilirubin 1.5 (0.1-1.5) mg/dL AST 23 (12-35) U/L ALT 25 (4-35) U/L Alkaline Phosphatase 95 (40-150) U/L Total Protein 9.0 H (6.0-8.3) g/dL Albumin 5.2 H (3.3-5.0) g/dL Lipase 65 (23-300) U/L Urine Color Cynthia A (Yellow) Urine Appearance Cloudy A (Clear) Urine pH 5.0 (5.0-8.5) Ur Specific [place] > 1.030 H (1.000-1.030) Urine Protein 3+ A (Negative) Urine Glucose (UA) Negative (Negative) Urine Ketones 3+ A (Negative) Urine Blood Trace-lysed A (Negative) Urine Nitrite Negative (Negative) Urine Bilirubin 1+ A (Negative) Urine Urobilinogen 0.2 (0.2-1.0) Ur Leukocyte Esterase Negative (Negative) Urine RBC 0-2 (0-2) Urine WBC 0-2 (0-5) Ur Squamous Epith Cells None (None-Few) Urine Bacteria None (None) Urine HCG, Qual Negative (Negative) SARS-CoV-2 (PCR) Negative SARS-CoV-2 (Negative) Influenza Type A (PCR) Negative PCR FLU A (Negative) Influenza Type B (PCR) Negative PCR FLU B (Negative) RSV (PCR) Negative PCR RSV (Negative) Lab Acknowledgement New Spec Needed A Imaging Data Chest x-ray: Attestation: I have reviewed the pertinent imaging results. Radiologist's impression: The heart is not abnormally enlarged. Mediastinal contours are grossly within normal limits. No definite confluent airspace opacity. No pleural effusion or pneumothorax. No acute osseous abnormality. Dictated by Jay Pulido MD @ 04/13/2025 12:34:[address] scan abdomen pelvis: Attestation: I have reviewed the pertinent imaging results. Radiologist's impression: 1. No definite CT evidence of acute pancreatitis. There is a questionable small focus of low-density in the uncinate process which could be due to edema or underlying lesion. Correlate with serum amylase and lipase. Consider further evaluation with nonemergent contrast-enhanced MRI. 2. Mild inflammatory changes of the distal esophagus suggesting esophagitis. 3. Mild bladder wall thickening. Correlate with urinalysis. 4. Diffuse hepatic steatosis. Please note that all CT scans at this facility use dose modulation, iterative reconstruction, and/or weight-based dosing when appropriate to reduce radiation dose to as low as reasonably achievable. Dictated by Dorys Das MD @ 04/13/2025 12:46:38 AM ECG Data Attestation: I personally reviewed and interpreted this ECG as follows: Prior ECG tracings: available for review Interpretation: Sinus tachycardia with a rate of 110 beats per minute, normal intervals, normal axis, no ST or T-wave abnormalities. Appears similar to previous EKGs on file. Discharge Plan Discharge Clinical Impression: Gastritis Qualifiers: Gastritis type: alcoholic Chronicity: acute Gastritis bleeding: with bleeding Qualified Code(s): K29.21 - Alcoholic gastritis with bleeding Patient Disposition: Home, Self-Care Condition: Improved Instructions: Gastritis (DC), Abuse of Alcohol (DC) Additional Instructions: You likely have gastritis from your alcohol. Recommend following up with your primary care provider. I highly recommend you stop drinking alcohol. It will eventually cause cirrhosis and eventual . You do have fatty liver disease right now but your liver is still salvageable and you can prevent any further damage to your liver and live a long healthy life. I recommend returning to emergency department for new or worsening symptoms. Take the Zofran as needed for your nausea. Is important to stay well hydrated. Prescriptions: No Action vitamin B complex [B Complex-Vitamin B12] Tablet 1 tab PO QDAY escitalopram oxalate 10 mg tablet 10 mg PO QDAY Qty: 90 0RF Rx Instructions: once daily for anxiousness cetirizine 10 mg tablet 10 mg PO QDAY PRN (Reason: allergy symptoms) Qty: 90 3RF pantoprazole [Protonix] 40 mg tablet,delayed release (DR/EC) 40 mg PO Q48H Qty: 90 0RF ondansetron 4 mg tablet,disintegrating 4 mg PO Q8H PRN (Reason: nausea and vomiting) Qty: 30 1RF hydroxyzine pamoate 25 mg capsule 25 - 50 mg PO QHS Qty: 90 0RF Rx Instructions: 1-2 capsules per night for sleep aide Follow Up/Referrals: Liz Ortez PA-C [Primary Care Provider, Family Practice] Stand Alone Forms: [facility] Info Instructions
[2025-04-12] MEDS: LACTATED RINGERS 1000 ML 1,000 ML IV (23:36)
[2025-04-12] MEDS: ONDANSETRON 2 MG/ML inj 4 MG IVP (23:36)
[2025-04-12] MEDS: MORPHINE 4 MG/ML INJ IVP (23:50)
[2025-04-12 23:51] LABS: Hematocrit 42.4 % (33.0-51.0); Hemoglobin* 14.4 gm/dL (12.0-16.0); Immature Granulocytes Pct Auto 0.1 %; Mean Corpuscular HGB Conc 34 gm/dL (32-36); Mean Corpuscular Hemoglobin 30 pg (26-34); Mean Corpuscular Volume 87 fL (80-100); RDW Coefficient of Variation % 15.0 % (11.5-15.5); Red Blood Count 4.88 m/uL (4.00-5.20); White Blood Count* 13.68 K/uL (4.50-11.00)
[2025-04-12 23:52] LABS: Appearance Urine Cloudy (Clear)
[2025-04-12 23:53] LABS: Ur HCG Qualitative* Negative (Negative)
[2025-04-12 23:54] LABS: Immature Granulocytes Abs Auto 0.00 K/uL (0.00-0.30); Lymphocytes Absolute Auto 1.40 K/uL (0.90-2.90); Slide Review Reflex No
[2025-04-13 00:04] LABS: Albumin* 5.2 g/dL (3.3-5.0); Chloride* 104 mmol/L (96-114); Potassium* 4.1 mmol/L (3.6-5.1); Sodium* 140 mmol/L (135-149)
[2025-04-13 00:07] LABS: Alanine Aminotransferase* 25 U/L (4-35); Alkaline Phosphatase* 95 U/L (40-150); Anion Gap 17 mEq/L (7-15); Aspartate Amino Transferase* 23 U/L (12-35); Bilirubin Total* 1.5 mg/dL (0.1-1.5); Blood Urea Nitrogen* 9 mg/dL (5-24); Carbon Dioxide* 19 mmol/L (20-32); Creatinine* 0.6 mg/dL (0.5-1.5); Est. Creatinine Clearance* 139.37; Estimated Glomerular Filt Rate 121 ml/min; Total Protein* 9.0 g/dL (6.0-8.3)
[2025-04-13 00:08] LABS: Calcium* 9.6 mg/dL (8.4-10.6); Glucose* 133 mg/dL (60-115)
[2025-04-13 00:13] LABS: INR 1.00 (0.91-1.10); Prothrombin Time 14.0 Seconds
[2025-04-13] MEDS: THIAMINE 100 MG TABLET PO (00:22)
[2025-04-13 00:25] VITALS: BP 135/94; PULSE 102; RESP 16; O2SAT 98
[2025-04-13 00:28] LABS: PCR FLU A Negative PCR FLU A (Negative); PCR FLU B Negative PCR FLU B (Negative); PCR RSV Negative PCR RSV (Negative); SARS PCR* Negative SARS-CoV-2 (Negative)
--- NOTE | 2025-04-13 00:30 | CRLHL7_ITS ---
For Patients: As a result of the Century Cures Act, medical imaging exams and procedure reports are released immediately into your electronic medical record. You may view this report before your referring provider. If you have questions, please contact your health care provider. INDICATION: Epigastric abdominal pain, history of pancreatitis. TECHNIQUE: CT of the abdomen and pelvis acquired with 98 cc Isovue 370 IV contrast. Coronal and sagittal reconstructions. COMPARISON: CT of the abdomen and pelvis 10/06/2023. FINDINGS: Lower chest: Unremarkable. Liver: Diffuse hepatic steatosis. No suspicious masses. Gallbladder and bile ducts: Unremarkable. No biliary dilation. Spleen: Unremarkable. Pancreas: There is diffuse parenchymal atrophy which has progressed since prior exam. No dilation of the main pancreatic duct. Questionable small focus of low-density in the uncinate process (series 2, image 59 and series 4, image 61). No significant peripancreatic inflammation. Adrenal glands: Unremarkable. Kidneys, Ureters, and Bladder: Symmetric enhancement. No hydronephrosis. No obstructing urinary calculi. Mild circumferential bladder wall thickening. Reproductive organs: Unremarkable. GI tract/Peritoneum: Mild wall thickening and fat stranding of the distal esophagus. No small bowel dilation. Mild stool burden. Colonic diverticulosis without evidence of diverticulitis. Negative appendix. No intraperitoneal free air or fluid. Vasculature: Abdominal aorta is normal in caliber. Mesenteric arteries appear patent. Lymph nodes: No lymphadenopathy. Abdominal Wall: Unremarkable. Bones: Unremarkable for age. IMPRESSION: 1. No definite CT evidence of acute pancreatitis. There is a questionable small focus of low-density in the uncinate process which could be due to edema or underlying lesion. Correlate with serum amylase and lipase. Consider further evaluation with nonemergent contrast-enhanced MRI. 2. Mild inflammatory changes of the distal esophagus suggesting esophagitis. 3. Mild bladder wall thickening. Correlate with urinalysis. 4. Diffuse hepatic steatosis. Please note that all CT scans at this facility use dose modulation, iterative reconstruction, and/or weight-based dosing when appropriate to reduce radiation dose to as low as reasonably achievable. Dictated by Dorys Das MD @ 04/13/2025 12:46:38 AM (Electronically Signed)
--- NOTE | 2025-04-13 00:30 | CRLHL7_ITS ---
For Patients: As a result of the Century Cures Act, medical imaging exams and procedure reports are released immediately into your electronic medical record. You may view this report before your referring provider. If you have questions, please contact your health care provider. Indication: Chest pain and vomiting. Technique: Two views of the chest. Comparison: Chest x-ray 12/28/2022. Findings/Impression: The heart is not abnormally enlarged. Mediastinal contours are grossly within normal limits. No definite confluent airspace opacity. No pleural effusion or pneumothorax. No acute osseous abnormality. Dictated by Jay Pulido MD @ 04/13/2025 12:34:34 AM (Electronically Signed)
[2025-04-13 00:34] LABS: HCO3 VBG 20 mmol/L (21-28); PCO2 VBG 37 mmHG (40-50); PO2 VBG 31.8 mmHG (25-47); pH VBG 7.345 (7.32-7.43)
[2025-04-13] MEDS: METOCLOPRAMIDE HCL 5 MG/ML INJ 10 MG IVP (00:41)
[2025-04-13 00:48] LABS: Lab Add On Test New Spec Needed
[2025-04-13 00:55] LABS: Troponin, Point-of-Care* 0.00 ng/ml (0.01-0.04)
== END 2025-04-13 01:32 | disposition home or self-care (01) ==
PROVIDERS: Emergency Provider Student in an Organized Health Care Education/Training Program; PCP Physician Assistant Medical
DX: K29.21 Alcoholic gastritis with bleeding (principal)
CPT/HCPCS: 36415; 71046; 74177; 80053; 81001; 81025; 82803; 83690; 84484; 85025; 85610; 85730; 87631; 93005; 96374; 96375; 99284; 99285; A9270; J2270; J2405; J2765; J7120; Q9967

== ENCOUNTER 2025-05-14 08:38 | Outpatient (CLI) | payer BC, SELFPAY ==
--- NOTE | 2025-05-14 10:18 | P.ANES_ITS ---
Anesthesia Charges Start Date/Time Anesthesia Start Date: 05/14/25 Anesthesia Start Time: 09:57 Stop Date/Time Anesthesia Stop Date: 05/14/25 Anesthesia Stop Time: 10:15 Coding CPT Codes CPT Codes: ANES UPR GI NDSC PX NOS - 81108 ([id number]) P2 - PATIENT W/MILD SYST DISEASE, QX - BRIM STIFFENER SVC W/ MD MED DIRECTION, QK - DEVOPS ARCHITECT 2-4 CNCRNT ANES PROC
--- NOTE | 2025-05-14 10:18 | W.ANESCHARGE ---
Anesthesia Charges Start Date/Time Anesthesia Start Date: 05/14/25 Anesthesia Start Time: 09:57 Stop Date/Time Anesthesia Stop Date: 05/14/25 Anesthesia Stop Time: 10:15 Coding CPT Codes CPT Codes: ANES UPR GI NDSC PX NOS - 66494 ([id number]) P2 - PATIENT W/MILD SYST DISEASE, QX - TECHNICIAN SVC W/ MD MED DIRECTION, QK - PATHOLOGY LABORATORY DIRECTOR 2-4 CNCRNT ANES PROC
--- NOTE | 2025-05-14 10:54 | P.ANES_ITS ---
Anesthesia Charges Start Date/Time Anesthesia Start Date: 05/14/25 Anesthesia Start Time: 09:57 Stop Date/Time Anesthesia Stop Date: 05/14/25 Anesthesia Stop Time: 10:15 Coding CPT Codes CPT Codes: ANES UPR GI NDSC PX NOS - 74506 ([id number]) QK - RETAIL PHARMACIST 2-4 CNCRNT ANES PROC, QX - SECURITY ATTENDANT SVC W/ MD MED DIRECTION, P2 - PATIENT W/MILD SYST DISEASE
--- NOTE | 2025-05-14 10:54 | W.ANESCHARGE ---
Anesthesia Charges Start Date/Time Anesthesia Start Date: 05/14/25 Anesthesia Start Time: 09:57 Stop Date/Time Anesthesia Stop Date: 05/14/25 Anesthesia Stop Time: 10:15 Coding CPT Codes CPT Codes: ANES UPR GI NDSC PX NOS - 34638 ([id number]) QK - TOLL COLLECTOR 2-4 CNCRNT ANES PROC, QX - REGISTERED NURSE STEP DOWN SVC W/ MD MED DIRECTION, P2 - PATIENT W/MILD SYST DISEASE
== END 2025-05-14 08:39 | disposition home or self-care (01) ==
LOC: OP CLINIC 08:40
PROVIDERS: PCP Physician Assistant Medical; Visit Provider Surgery
DX: K21.9 Gastro-esophageal reflux disease without esophagitis (principal)
CPT/HCPCS: 00731; 43239; 88305; 88342; J2704; J3490